=== PATIENT | male | born 1965 | race Caucasian/White ===

== ENCOUNTER 2016-08-25 11:13 | Emergency (ER) | payer BC, OTHER ==
[~2016-08-25] VITALS: Ht 180.3 cm; Wt 85.0 kg
[~2016-08-25 11:13] MED LIST: BUDE100T PO; BUPR100T4 PO; DEPA500T3 PO; DIAZ5TAB PO; HYDR50TA5 PO; NAPR500T PO; PRAV10 PO
[2016-08-25 11:16] VITALS: BP 172/92; PULSE 65; RESP 16; TEMP 98.2; O2SAT 98
--- NOTE | 2016-08-25 12:34 | PD ---
HPI Chief Complaint: Lump, Cyst, Hernia Time Seen by Provider: 12:27 Travel History International Travel<30 days: No Contact w/Intl Traveler<30days: No Traveled to known affect area: No History of Present Illness HPI 51-year-old male with PMH of anxiety, depression, PTSD, HTN presents to the ED for evaluation of 2 week history of right groin discomfort. Worsened by exertion, heavy lifting, rising from a sitting position. Patient denies fevers , chills, loss of appetite, abdominal pain, nausea, vomiting, changes in bowel habits, dysuria, hematuria, testicular pain. He states that he "stretched his inguinal ring "years ago while he was in the . He feels he may have aggravated this a few weeks ago whenever he was lifting 20-30 pound bags. PFSH Past Medical History Arthritis: Yes Anxiety: Yes Depression: Yes Cancer: No High Cholesterol: Yes Diabetes: No Diminished Hearing: No Genitourinary: Yes (kidney stones) Hypertension: Yes Kidney Stones: Yes (right kidney) Musculoskeletal: Yes Psychiatric: Yes (PTSD, per pt) Reproductive: No Past Surgical History Other Surgery: Yes (broken nose) Social History Alcohol Use: No Tobacco Use: No Substance Use: No (patient denies, not in two years) Allergies-Medications (Allergen,Severity, Reaction): Coded Allergies: No Known Allergies (Unverified , 08/25/16) Reported Meds & Prescriptions Reported Meds & Active Scripts Active Depakote ER (Divalproex Sodium) 500 Mg Aristeo 1,500 Mg PO DAILY 5 Days Reported Bupropion HCl 100 Mg Tab 200 Mg PO BID Simvastatin 40 Mg Tab 40 Mg PO HS Diazepam 5 Mg Tab 7.5 Mg PO QID PRN Review of Systems Except as stated in HPI: all other systems reviewed are Neg Physical Exam Narrative GENERAL: Well-nourished, well-developed white male in no acute distress. SKIN: Warm and dry. HEAD: Normocephalic. EYES: No scleral icterus. No injection or drainage. NECK: Supple, trachea midline. No JVD or lymphadenopathy. CARDIOVASCULAR: Regular rate and rhythm without murmurs, gallops, or rubs. RESPIRATORY: Breath sounds equal bilaterally. No accessory muscle use. GASTROINTESTINAL: Abdomen soft, non-tender, nondistended. No masses or bulges. Active bowel sounds. GENITOURINARY: Circumcised. Testes descended bilaterally without evidence of rotation. No lesions or erythema. No urethral discharge. No evidence of hernia. MUSCULOSKELETAL: No cyanosis, or edema. Patient is ambulatory and moves extremities spontaneously. BACK: Nontender without obvious deformity. No CVA tenderness. Data Data Last Documented VS Vital Signs Date Time Temp Pulse Resp B/P Pulse Ox O2 Delivery O2 Flow Rate FiO2 08/25/16 15:21 59 20 152/74 99 08/25/16 11:[address] Abd/Pel W/O Iv Contrast (08/25/16 12:54) MDM Medical Decision Making Medical Screen Exam Complete: Yes Emergency Medical Condition: Yes Differential Diagnosis Direct inguinal hernia versus indirect inguinal hernia versus groin strain versus other Narrative Course 51-year-old male with PMH of anxiety, depression, PTSD, HTN presents to the ED for evaluation of 2 week history of right groin discomfort. Worsened by exertion, heavy lifting, rising from a sitting position. Patient denies fevers , chills, loss of appetite, abdominal pain, nausea, vomiting, changes in bowel habits, dysuria, hematuria, testicular pain. He states that he "stretched his inguinal ring "years ago while he was in the . Vitals reviewed. Physical exam is reassuring. No abdominal or inguinal bulge. No hernia detected in the inguinal ring. CT of the abdomen/pelvis reveals no evidence of mass, lymphadenopathy, inflammatory changes in the inguinal areas per radiology read. Discussed the possibility of muscle strain/sprain. Advised the patient to limit strenuous activity, where he hernia belt or back support brace. Instructed him to treat symptomatically, take a brief course of NSAIDs, [facility] We discussed reasons to return to the emergency room. He indicated understanding of instructions, is amenable to plan of care. He is stable discharged home. Diagnosis Primary Impression: Right groin pain Referrals: Primary Care Physician Patient Instructions: General Instructions, Inguinal Hernia (ED) Additional Instructions: Rest, hydrate. Return to normal, gentle activities as tolerated. No heavy lifting, heavy physical exertion which causes pain. Consider trailing a hernia belt for symptomatic relief. [id number] pain medication such as ibuprofen as needed, as directed on label. [facility]. Return to the ED for any urgent or emergent medical condition. Disposition: 01 DISCHARGE HOME Condition: Stable Taylor Polo Aug 25, 2016 12:34
[2016-08-25] MEDS ORDERED: BUPR100T4 PO (12:47)
[2016-08-25] MEDS ORDERED: SIMV40TA PO (12:47)
[2016-08-25 13:15] VITALS: BP 165/68; PULSE 68; RESP 16; O2SAT 98
--- NOTE | 2016-08-25 14:48 | RADRPT ---
EXAM DATE/TIME: 08/25/2016 13:40 [facility] COMPARISON: CT ABDOMEN & PELVIS W/O CONTRAST, April 30, 2016, 2:44. INDICATIONS : Right groin pain for 2 weeks. ORAL CONTRAST: No oral contrast ingested. RADIATION DOSE: 9.96 CTDIvol (mGy) MEDICAL HISTORY : Hypertension. Renal calculi. SURGICAL HISTORY : None. ENCOUNTER: Initial ACUITY: 2 weeks PAIN SCALE: 4/10 LOCATION: Right pelvis TECHNIQUE: Volumetric scanning of the abdomen and pelvis was performed. Using automated exposure control and ad justment of the mA and/or kV according to patient size, radiation dose was kept as low as reasonably achievable to obtain optimal diagnostic quality images. FINDINGS: LOWER LUNGS: The visualized lower lungs are clear. LIVER: Homogeneous density without lesion. There is no dilation of the biliary tree. No calcified gallston es. SPLEEN: Normal size without lesion. PANCREAS: Within normal limits. KIDNEYS: Normal in size and shape. Simple bilateral renal cysts have remained stable. There is no mass, stone, or hydronephrosis. ADRENAL GLANDS: Within normal limits. VASCULAR: There is no aortic aneurysm. BOWEL/MESENTERY: The stomach, small bowel, and colon demonstrate no acute abnormality. There is no free intraperitone al air or fluid. ABDOMINAL WALL: Within normal limits. RETROPERITONEUM: There is no lymphadenopathy. BLADDER: No wall thickening or mass. REPRODUCTIVE: Within normal limits. INGUINAL: There is no lymphadenopathy or hernia. MUSCULOSKELETAL: Within normal limits for patient age. CONCLUSION: No acute disease. No evidence of mass, lymphadenopathy or inflammatory changes in the inguinal regions. Stable simple bilateral renal cysts. Gab Stewart MD on August 25, 2016 at 14:43 Board Certified Radiologist. This report was verified electronically.
[2016-08-25 15:21] VITALS: BP 152/74
== END 2016-08-25 15:21 | disposition home or self-care (01) ==
LOC: NETRI 11:13
DX: R10.30 Lower abdominal pain, unspecified (principal); F41.8 Other specified anxiety disorders; E78.00 Pure hypercholesterolemia, unspecified; Z87.442 Personal history of urinary calculi; I10 Essential (primary) hypertension; F43.10 Post-traumatic stress disorder, unspecified
CPT/HCPCS: 74176

== ENCOUNTER 2016-09-13 15:54 | Inpatient (IN) | payer OTHER ==
[~2016-09-13] VITALS: Ht 172.7 cm; Wt 86.0 kg
[~2016-09-13 15:54] MED LIST changes: -BUDE100T PO; -HYDR50TA5 PO; -NAPR500T PO; -PRAV10 PO; +SIMV40TA PO
[2016-09-13 16:25] VITALS: BP 125/78; PULSE 74; RESP 20; TEMP 97; O2SAT 96
[2016-09-13 16:41] VITALS: BP 131/79; PULSE 71; RESP 18; TEMP 98; O2SAT 97
[2016-09-13] MEDS ORDERED: DEPA500T3 PO (17:12)
[2016-09-13] MEDS ORDERED: HYDR25TA5 PO (17:12)
[2016-09-13 18:17] LABS: AUTOMATED NEUTROPHIL # 1.7 TH/MM3 (1.8-7.7); BASOPHIL % 0.5 % (0.0-2.0); EOSINOPHIL # 0.2 TH/MM3 (0-0.4); EOSINOPHIL % 5.7 % (0.0-4.0); HEMATOCRIT 41.2 % (39.0-51.0); HEMO FLAGS DIFF FINAL; LYMPH % 39.4 % (9.0-44.0); LYMPHOCYTE # 1.5 TH/MM3 (1.0-4.8); MEAN CELL VOLUME 86.1 FL (80.0-100.0); MEAN CORPUSCULAR HEMOGLOBIN 29.6 PG (27.0-34.0); MEAN CORPUSCULAR HGB CONC 34.4 % (32.0-36.0); MONO % 10.2 % (0.0-8.0); NEUT % 44.2 % (16.0-70.0); PLATELET COUNT 217 TH/MM3 (150-450); RED BLOOD COUNT 4.78 MIL/MM3 (4.50-5.90); RED CELL DISTRIBUTION WIDTH 13.8 % (11.6-17.2); WHITE BLOOD COUNT 3.9 TH/MM3 (4.0-11.0)
--- NOTE | 2016-09-13 18:42 | PD ---
HPI Chief Complaint: Psychiatric Symptoms Time Seen by Provider: 18:40 Travel History International Travel<30 days: No Contact w/Intl Traveler<30days: No Traveled to known affect area: No History of Present Illness HPI Patient comes under a Jackson act for homicidal and suicidal ideations. Patient denies any suicidal ideation but states that sometimes he is feeling homicidal similar to when he was back in [place] when he gets this way he needs to get help. Patient denies any exact plans. Denies any medical concerns at this time. Denies any chest pain, short of breath, nausea and vomiting, abdominal pain, fevers, or headaches. PFSH Past Medical History Arthritis: Yes Anxiety: Yes Depression: Yes Cancer: No High Cholesterol: Yes Diabetes: No Diminished Hearing: No Gastrointestinal Disorders: Yes (upper intestinal pain, intermittent and severe ) Genitourinary: Yes (kidney stones) Headaches: Yes Hypertension: Yes Kidney Stones: Yes (right kidney) Musculoskeletal: Yes (CHRONIC PAIN) Psychiatric: Yes (PTSD, per pt) Reproductive: No Past Surgical History Other Surgery: Yes (broken nose) Social History Alcohol Use: No Tobacco Use: No Substance Use: Yes (COCAINE, MARIJUANA) Allergies-Medications (Allergen,Severity, Reaction): Coded Allergies: No Known Allergies (Unverified , 08/25/16) Reported Meds & Prescriptions Reported Meds & Active Scripts Active Reported Depakote ER (Divalproex Sodium) 500 Mg Aristeo 2,000 Mg PO HS Hydrochlorothiazide 25 Mg Tab 25 Mg PO DAILY Bupropion HCl 100 Mg Tab 200 Mg PO BID Simvastatin 40 Mg Tab 40 Mg PO HS Diazepam 5 Mg Tab 5 Mg PO BID PRN Review of Systems Except as stated in HPI: all other systems reviewed are Neg Physical Exam Narrative GENERAL: Well-developed, well nourished, in no acute distress, and non-ill appearing. SKIN: Warm and dry. HEAD: Atraumatic. Normocephalic. EYES: Pupils equal and round. EOMI. No scleral icterus. No injection or drainage. ENT: No nasal bleeding or discharge. Mucous membranes pink and moist. NECK: Trachea midline. Supple. No nuclear rigidity. CARDIOVASCULAR: Regular rate and rhythm. No murmur appreciated. RESPIRATORY: No accessory muscle use. No respiratory distress. Clear to auscultation. Breath sounds equal bilaterally. MUSCULOSKELETAL: No obvious deformities. No clubbing. No cyanosis. No edema. Full range of motion. NEUROLOGICAL: Awake and alert. No obvious cranial nerve deficits. Motor grossly within normal limits. Normal speech. PSYCHIATRIC: Appropriate mood and affect. Data Data Last Documented VS Vital Signs Date Time Temp Pulse Resp B/P Pulse Ox O2 Delivery O2 Flow Rate FiO2 09/13/16 16:41 98.0 71 18 131/79 97 Room Air Orders Complete Blood Count With Diff (09/13/16 16:16) Comprehensive Metabolic Panel (09/13/16 16:16) Psych Screen (09/13/16 16:16) Diet Regular Basic (09/13/16 Dinner) Valproic Acid (Depakene) (09/13/16 18:14) Alcohol (Ethanol) (09/13/16 18:14) Drug Screen, Random Urine (09/13/16 18:14) Labs Laboratory Tests Test 09/13/16 09/13/16 17:00 18:03 Urine Opiates Screen NEG Urine Barbiturates Screen NEG Urine Amphetamines Screen NEG Urine Benzodiazepines Screen POS Urine Cocaine Screen POS Urine Cannabinoids Screen POS White Blood Count 3.9 TH/MM3 Red Blood Count 4.78 MIL/MM3 Hemoglobin 14.2 GM/DL Hematocrit 41.2 % Mean Corpuscular Volume 86.1 FL Mean Corpuscular Hemoglobin 29.6 PG Mean Corpuscular Hemoglobin 34.4 % Concent Red Cell Distribution Width 13.8 % Platelet Count 217 TH/MM3 Mean Platelet Volume 8.3 FL Neutrophils (%) (Auto) 44.2 % Lymphocytes (%) (Auto) 39.4 % Monocytes (%) (Auto) 10.2 % Eosinophils (%) (Auto) 5.7 % Basophils (%) (Auto) 0.5 % Neutrophils # (Auto) 1.7 TH/MM3 Lymphocytes # (Auto) 1.5 TH/MM3 Monocytes # (Auto) 0.4 TH/MM3 Eosinophils # (Auto) 0.2 TH/MM3 Basophils # (Auto) 0.0 TH/MM3 CBC Comment DIFF FINAL Differential Comment Sodium Level 141 MEQ/L Potassium Level 4.3 MEQ/L Chloride Level 104 MEQ/L Carbon Dioxide Level 30.9 MEQ/L Anion Gap 6 MEQ/L Blood Urea Nitrogen 12 MG/DL Creatinine 1.46 MG/DL Estimat Glomerular Filtration 51 ML/MIN Rate Random Glucose 115 MG/DL Calcium Level 8.8 MG/DL Total Bilirubin 0.2 MG/DL Aspartate Amino Transf 15 U/L (AST/SGOT) Alanine Aminotransferase 17 U/L (ALT/SGPT) Alkaline Phosphatase 77 U/L Total Protein 7.3 GM/DL Albumin 3.8 GM/DL Valproic Acid (Depakene) Level 65 MCG/ML Ethyl Alcohol Level LESS THAN 3 MG/DL MDM Medical Decision Making Medical Screen Exam Complete: Yes Emergency Medical Condition: Yes Differential Diagnosis Homicidal, suicidal, polysubstance abuse, bipolar, psychosis, suicidal, other Narrative Course Patient was seen and examined. Labs were obtained and reviewed. Patient medically cleared for further treatment and evaluation by psych. Final disposition per psych. Diagnosis Primary Impression: Homicidal ideations Additional Impression: Polysubstance abuse Condition: Stable Monico Solis Sep 13, 2016 18:42
[2016-09-13 18:45] LABS: ALT (GPT) 17 U/L (12-78); ANION GAP 6 MEQ/L (5-15); AST (GOT) 15 U/L (15-37); BICARBONATE 30.9 MEQ/L (21.0-32.0); BLOOD UREA NITROGEN 12 MG/DL (7-18); CHLORIDE 104 MEQ/L (98-107); GLOMERULAR FILTRATION RATE 51 ML/MIN (>89); POTASSIUM 4.3 MEQ/L (3.5-5.1); SODIUM (NA) 141 MEQ/L (136-145)
[2016-09-13 18:47] LABS: ALKALINE PHOSPHATASE 77 U/L (45-117); TOTAL BILIRUBIN ADULT 0.2 MG/DL (0.2-1.0)
[2016-09-13 19:20] LABS: AMPHETAMINE, URINE NEG (NEG); BARBITURATES, URINE NEG (NEG); COCAINE, URINE POS (NEG)
[2016-09-13 22:21] VITALS: BP 127/79; PULSE 72; RESP 18; O2SAT 97
[2016-09-14 02:00] VITALS: BP 122/76; PULSE 65; RESP 17; O2SAT 98
[2016-09-14 06:17] VITALS: BP 129/72; PULSE 56; RESP 18; O2SAT 98
[2016-09-14 10:37] VITALS: BP 132/75; PULSE 81; RESP 18; O2SAT 97
--- NOTE | 2016-09-14 11:37 | PD ---
History of Present Illness Chief Complaint: Psychiatric Symptoms Time Seen by Provider: 11:10 Travel History International Travel<30 Days: No Contact w/Intl Traveler<30days: No Known affected area: No Legal Status Legal Status: Jackson Act Jackson Act Signed By: HIRO NELSON MD FROM [place] History of Present Illness: History of Present Illness HPI Patient is a 51 year old male with hx of PTSD who presents under a BA initiated by psychiatrist at the [facility]. As per the report " having passive suicidal ideation and homicidal wishes towards his . Patient presented to [facility] with above complaints. He was monitored in secure environment in [place] with no behavioral concerns or suicidality. Patient is alert, oriented, engaging. Speech is clear and logical. No indication of any thought process or contents disturbance. Mood is dysphoric. He states " If I were to be discharged I would probably put 2 in her head ( his ). ". I don't have a gun but it's very easy to buy one on the street. I would then try to get the police to shoot me. I know it doesn't make sense but that's how I feel". He reports ongoing marital distress as significant stressor and that they fight over money as well as over his dogs which he claims she put in the dog pound. . He also stopped taking his prescribed medications a few days ago . VPA level is 65. Reports poor sleep, low level of energy is reported. Hopelessness regarding his future. In terns of substance use he is positive for cannabinoids, cocaine as well as benzos. One previous psychiatric hospitalization in Jul 2016 at [facility] under the care of Dr. Laurent. [facility] Past Medical History Arthritis: Yes Anxiety: Yes Depression: Yes Cancer: No High Cholesterol: Yes Diabetes: No Diminished Hearing: No Gastrointestinal Disorders: Yes (upper intestinal pain, intermittent and severe ) Genitourinary: Yes (kidney stones) Headaches: Yes Hypertension: Yes Kidney Stones: Yes (right kidney) Musculoskeletal: Yes (CHRONIC PAIN) Psychiatric: Yes (PTSD, per pt) Reproductive: No Past Surgical History Other Surgery: Yes (broken nose) Psychiatric History Psychiatric History Hx Psychiatric Treatment: PTSD Receives care at the [place] History of Inpatient Treatment: Yes ([facility] Jul 2016.) Guns or firearms in home: No Social History Born in [place]. 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 Disabled. x 3 years. Lives with his . Hx Alcohol Use: No Hx Tobacco Use: No Hx Substance Use: Yes (COCAINE, MARIJUANA) Substance Use Type: Marijuana, Cocaine Other Substances Used: TAKING PRESCRIBED VALIUM. DOSE DECREASED AND REPORTS DECREASED EFFECT Hx of Substance Use Treatment: Yes Family Psychiatric History cousin completed suicide Allergies-Medications (Allergen,Severity, Reaction): Coded Allergies: No Known Allergies (Unverified , 08/25/16) Reported Meds & Prescriptions Reported Meds & Active Scripts Active Reported Depakote ER (Divalproex Sodium) 500 Mg Aristeo 2,000 Mg PO HS Hydrochlorothiazide 25 Mg Tab 25 Mg PO DAILY Bupropion HCl 100 Mg Tab 200 Mg PO BID Simvastatin 40 Mg Tab 40 Mg PO HS Diazepam 5 Mg Tab 5 Mg PO BID PRN Review of Systems Except as stated in HPI: all other systems reviewed are Neg Psychiatric: COMPLAINS OF: Mood changes, Suicidal Ideation, Homicidal Ideation Exam Alert: Yes [place]: Person (ox4) Mood: Angry Affect: Other (congruent) Eye Contact: Indirect Memory Intact: Comment (no impairment) Hallucinations: Other (negative) Delusions: No Suicidal: Ideation (pasive) Homicidal: Plan (to shoot his ), Ideation Insight/Judgement poor. poor MDM Medical Decision Making Medical Record Reviewed: Yes Assessment/Plan 51 year old male under A BA after he presented to [facility] and verbalized suicidal as well as homicidal ideation. He reports marital discord, poor medication compliance as well as continued use of substances which all may be contributing to current state. he continues to endorse homicidal ideation and states " I may end up putting 2 in her head if discharged". Orders Complete Blood Count With Diff (09/13/16 16:16) Comprehensive Metabolic Panel (09/13/16 16:16) Psych Screen (09/13/16 16:16) Diet Regular Basic (09/13/16 Dinner) Valproic Acid (Depakene) (09/13/16 18:14) Alcohol (Ethanol) (09/13/16 18:14) Drug Screen, Random Urine (09/13/16 18:14) Diet Regular Basic (2/9/17 Breakfast) Diet Regular Basic (09/14/16 Lunch) Results Vital Signs Date Time Temp Pulse Resp B/P Pulse Ox O2 Delivery O2 Flow Rate FiO2 09/14/16 10:37 81 18 132/75 97 09/14/16 06:17 56 18 129/72 98 Room Air 09/14/16 02:00 65 17 122/76 98 Room Air 09/13/16 22:21 72 18 127/79 97 Room Air 09/13/16 16:41 98.0 71 18 131/79 97 Room Air 09/13/16 16:25 97.0 74 20 125/78 96 Laboratory Tests Test 09/13/16 09/13/16 17:00 18:03 Urine Opiates Screen NEG Urine Barbiturates Screen NEG Urine Amphetamines Screen NEG Urine Benzodiazepines Screen POS Urine Cocaine Screen POS Urine Cannabinoids Screen POS White Blood Count 3.9 Red Blood Count 4.78 Hemoglobin 14.2 Hematocrit 41.2 Mean Corpuscular Volume 86.1 Mean Corpuscular Hemoglobin 29.6 Mean Corpuscular Hemoglobin 34.4 Concent Red Cell Distribution Width 13.8 Platelet Count 217 Mean Platelet Volume 8.3 Neutrophils (%) (Auto) 44.2 Lymphocytes (%) (Auto) 39.4 Monocytes (%) (Auto) 10.2 Eosinophils (%) (Auto) 5.7 Basophils (%) (Auto) 0.5 Neutrophils # (Auto) 1.7 Lymphocytes # (Auto) 1.5 Monocytes # (Auto) 0.4 Eosinophils # (Auto) 0.2 Basophils # (Auto) 0.0 CBC Comment DIFF FINAL Differential Comment Sodium Level 141 Potassium Level 4.3 Chloride Level 104 Carbon Dioxide Level 30.9 Anion Gap 6 Blood Urea Nitrogen 12 Creatinine 1.46 Estimat Glomerular Filtration 51 Rate Random Glucose 115 Calcium Level 8.8 Total Bilirubin 0.2 Aspartate Amino Transf 15 (AST/SGOT) Alanine Aminotransferase 17 (ALT/SGPT) Alkaline Phosphatase 77 Total Protein 7.3 Albumin 3.8 Valproic Acid (Depakene) Level 65 Ethyl Alcohol Level LESS THAN 3 Diagnosis Primary Impression: Bipolar disorder, in partial remission, most recent episode mixed Additional Impression: Polysubstance abuse Admitting Information Admitting Physician Requests: Admit (Dr. Starr) Condition: Stable Problem Qualifiers Tiarra Miller [facility] Sep 14, 2016 11:37
[2016-09-14] MEDS ORDERED: MAGNESIUM HYDROXIDE SUSP 30 ML CUP PO PRN (12:15)
[2016-09-14] MEDS ORDERED: ALUMINUM/MAGNESIUM/SIMETH 30 ML CUP PO PRN (12:15)
[2016-09-14 14:02] VITALS: BP 138/108; PULSE 75; RESP 18; TEMP 98.3; O2SAT 93
--- NOTE | 2016-09-14 15:31 | HHI.HP ---
Provisional Diagnosis Admission Date Sep 14, 2016 at 12:13 Healy I. 1. Drug-induced mood disorder Rule out bipolar disorder, depressed 2. Cocaine abuse 3. Cannabis abuse 4. Posttraumatic stress disorder, chronic Rule out comorbid anxiety disorder Healy II. 1. Antisocial personality traits Healy V. GAF is 30 presently Certification of Person's Competence To Provide Express and Informed Consent I have personally examined He Porter , a person being served at [facility] on, Sep 14, 2016 15:30. Express and informed consent means consent voluntarily given in writing, by a competent person, after sufficient explanation and disclosure of the subject matter involved to enable the person to make a knowing and willful decision without any element of force, fraud, deceit, duress, or other form of constraint or coercion. This person is 18 years of age or older, is not now known to be incompetent to consent to treatment with a guardian advocate, and does not have a health care surrogate or proxy currently making medical treatment decisions. I have found this person to be one of the following: [x] Competent to provide express and informed consent, as defined above, for voluntary admission to this facility and is competent to provide express and informed consent for treatment. He/she has the consistent capacity to make well reasoned, willful, and knowing decisions concerning his or her medical or mental health treatment. The person fully and consistently understands the purpose of the admission for examination/placement and is fully capable of personally exercising all rights assured under [place] Incompetent to provide express and informed consent to voluntary admission, and this is incompetent to provide express and informed consent to treatment. The person must be transferred to involuntary status and a petition for a guardian advocate filed with the Circuit Court. [] Refusing to provide express and informed consent to voluntary admission but is competent to provide express and informed consent for treatment. The person must be discharged or transferred to involuntary status. Form shall be completed within 24 hours of a person's arrival at the receiving facility and filed in the clinical record of each person: 1. Admitted on a voluntary basis 2. Permitted to provide express and informed consent to his/her own treatment 3. Allowed to transfer from involuntary to voluntary status 4. Prior to permitting a person to consent to his or her own treatment after having been previously found incompetent to consent to treatment. History of Present Illness Capacity: Has Capacity HPI Mr. Porter is a 51-year-old male with a reported history of post traumatic stress disorder from trauma, bipolar disorder and anxiety who presents in transfer from the [facility] under a Jackson act from a Dr. Marcial there alleging passive suicidal ideation and homicidal ideation directed against . Also appended to the chart is a progress note from Dr. Marcial as well as a medication list, and I have reviewed this. Patient was evaluated in the emergency department by the psychiatric nurse practitioner who determined the patient met criteria for psychiatric hospitalization. Reviewing the electronic medical record, I note patient's most recent psychiatric hospitalization here was under Dr. Laurent in July of last year. Patient seen and examined with counselor. Chart reviewed. Case discussed with nursing staff. On my examination today, the patient says that he probably should've stayed a few more days when he was hospitalized last time. He reports that his presentation now is largely the result of the same stressors that led him to come into the hospital last time. He says that his is quite manipulative and treats him poorly for 3 weeks out of every month. She is only nice to him the week before he gets his disability check. He says that on this occasion his he used his being late coming home by 1 hour as a pretense to throw all of his items on the curb. He says that he would like to kill his as a result. He does not articulate a specific plan at this time but had said he might buy a gun and shoot her to the nurse practitioner in the ED. He feels "wanting to hurt her makes perfect sense" but also recognizes that these feelings are abnormal. He describes a high level of generalized anxiety and is medication seeking for benzodiazepines. His mood is dysphoric. He reports disrupted sleep with associated nightmares. Some avoidance and hyperarousal. He denies any SI at this time. Antisocial personality traits are evident. The remainder of the psychiatric ROS is negative. Past psychiatric history: Patient reports prior diagnoses as noted above. He is presently following with [facility] Marcial at the [facility]. He has done psychotherapy through the [facility] in the past but finds that the provider changed to frequently to allow for establishment of report. He says that his only previous psychiatric admission was here under Dr. Laurent. He denies any history of suicide attempts. Patient reports that he felt some interval improvement in his condition when his Depakote was titrated from 1500mg to 2000mg qHS. He reports he has never been on prazosin for nightmares. Review of Systems Other No reported headache, vision or hearing changes, chest pain, shortness of breath , bowel or bladder issues. No other physical complaints. Past Psych History Psychological trauma history Patient reports a history of trauma. He denies any history of childhood or other abuse. Substance Abuse History Drugs/Alcohol past 12 months Patient reports chronic use of cannabis but says that his cocaine use is solely to antagonize his . He says "I'm just trying to push her away." He admits to overusing his benzodiazepines, taking 3 or 4 Valium a day instead of the 2 a day that he is prescribed. I did review his E-FORCSE report and note he received a refill of Valium 5mg, #60 for 30 days on 08/31/16. Past Family Social History Coded Allergies: No Known Allergies (Unverified , 08/25/16) Past Medical History Patient endorses a history of hypertension and hyperlipidemia Reported Medications Hydrochlorothiazide 25 Mg Tab25 Mg PO DAILY #30 TAB Ref 0 09/13/16 Bupropion HCl 100 Mg [id number] Mg PO BID Ref 0 08/25/16 Simvastatin 40 Mg Tab40 Mg PO HS #30 TAB Ref 0 08/25/16 Diazepam 5 Mg Tab5 Mg PO BID PRN (ANXIETY) Ref 0 07/12/16 Discontinued Reported Medications Divalproex ER (Depakote ER)500 Mg Taber2,000 Mg PO HS #60 TAB Ref 0 09/13/16 Discontinued Scripts Divalproex ER (Depakote ER)500 Mg Taber1,500 Mg PO DAILY 5 Days Ref 1 Prov:Keyur Huizar MD 07/19/16 Current Medications Medications (Trade) Dose Ordered Sig/Yulissa Route Start Time Stop Time Status Last Admin (Tylenol) 650 mg Q4H PRN PO 09/14/16 12:15 (Milk Of Magnesia Liq) 30 ml DAILY PRN PO 09/14/16 12:15 (Mag-Al Plus Susp Liq) 30 ml Q6H PRN PO 09/14/16 12:15 Family History Patient denies any family history of serious mental illness but says that his cousin had an opiate use problem and overdosed. No reported family history of intentional self injury or suicide. Social History Patient reports that he is a [employer] having served in [place] and having been honorably discharged. He is 90% service connected. He has been to his second now for "3 miserable years." He has no children. He denies any legal issues. He denies any access to guns or firearms. He is a Bahai and says "that's the only reason she [his ] is still breathing." Patient's Strengths (min. 2) Maintaining basic hygiene. Verbally fluent. Physical Exam A physical examination was completed in the emergency room by the ER staff and the patient was medically cleared. On my examination today, the patient is in no acute physical distress. No motoric abnormalities noted. Steady gait and station. Labs and vital signs reviewed. Vital Signs Vital Signs Date Time Temp Pulse Resp B/P Pulse Ox O2 Delivery O2 Flow Rate FiO2 09/14/16 14:02 98.3 75 18 138/108 93 09/14/16 06:17 Room Air Lab Results Item Value Date Time White Blood Count 3.9 TH/MM3 L 09/13/16 1803 Hemoglobin 14.2 GM/DL 09/13/16 180 Platelet Count 217 TH/MM3 09/13/16 1803 Sodium Level 141 MEQ/L 09/13/16 1803 Potassium Level 4.3 MEQ/L 09/13/16 1803 Chloride Level 104 MEQ/L 09/13/16 1803 Carbon Dioxide Level 30.9 MEQ/L 09/13/16 1803 Blood Urea Nitrogen 12 MG/DL 09/13/16 1803 Creatinine 1.46 MG/DL H 09/13/16 1803 Estimat Glomerular Filtration Rate 51 ML/MIN L 09/13/16 1803 Aspartate Amino Transf (AST/SGOT) 15 U/L 09/13/16 1803 Alanine Aminotransferase (ALT/SGPT) 17 U/L 09/13/16 1803 Alkaline Phosphatase 77 U/L 09/13/16 1803 Urine Benzodiazepines Screen POS H 09/13/16 1700 Urine Cocaine Screen POS H 09/13/16 1700 Urine Cannabinoids Screen POS H 09/13/16 1700 Valproic Acid (Depakene) Level 65 MCG/ML 09/13/16 1803 Ethyl Alcohol Level LESS THAN 3 MG/DL 09/13/16 1803 Renal function is comparable to best renal function obtained during his July admission. Mental Status Examination Patient is in hospital gown. He is fairly well groomed. He is awake and alert and oriented 3. No evidence of delirium. No motoric abnormalities noted. Speech is within normal limits for rate, tone and volume. Language and fund of knowledge and average for age. Mood is dysphoric and affect is restricted. Thought process linear. No loosening of associations. No evident delusions. Denies audiovisual hallucinations. Denies suicidal ideation. Continues to endorse thoughts of killing his . Insight and judgment are [id number]; from Dr. Marcial's notes, patient did request to be sent to hospital. Previous Suicide Attempts: No Previous Homicide Attempts: No Assessment & Plan Problem List: (1) Drug-induced mood disorder ICD Code: F19.94 (2) Cocaine abuse ICD Code: F14.10 (3) Cannabis abuse ICD Code: F12.10 (4) Chronic post-traumatic stress disorder (PTSD) ICD Code: F43.12 Assessment & Plan This is a 51-year-old male with psychiatric history as detailed above who presents from the [facility] under a Jackson act. Patient continues to articulate an urge to kill his because he feels she mistreats him. His rationale for this proposed conduct seems rational, in its way, and there is no evidence that his desire to injure his has its basis in a mood , anxiety or psychotic disorder. For example, he has no CAH to kill his , nor does he labor under a delusion that might lead him to do so. His antisocial personality traits and substance use are certainly risk factors for violence, but these will not be ameliorated on the inpatient unit. He is somewhat dysphoric, and while I suspect this is largely substance induced, he did notice some benefit when his Depakote was titrated last time, and there is room for titration now. More also might be done to address his symptoms of post traumatic stress. I will plan to admit the patient to the inpatient psychiatric unit for safety, observation, and stabilization. --Admit inpatient --Voluntary status --Titrate Depakote ER to 2500mg qHS for mood stabilization. LFTs and plt ok. Plan to check a level after the weekend. --Add prazosin 1mg BID for PTSD. --Continue Valium 5mg BID PRN anxiety as prescribed outpatient. --Continue Wellbutrin SR 200mg BID, although I did suggest he might consider a more serotonergic antidepressant for better management of his anxious symptoms. He says he has tried Prozac in the past without a mood stabilizer on board and has had induction of a manic-like state. --Continue hydrochlorothiazide and statin --Vitals every shift --Counselor to see --Disposition planning --Estimated length of stay: 7-9 days Discharge Planning Pending psychiatric stabilization Request HC Surrog/Guard Advoc?: No Yogesh Starr MD Sep 14, 2016 15:31
[2016-09-14] MEDS: DIAZEPAM 5 MG TAB PO PRN (17:06)
[2016-09-14 20:29] VITALS: BP 131/83; PULSE 73; RESP 17; TEMP 97.9; O2SAT 96
[2016-09-14] MEDS: PRAZOSIN HCL 1 MG CAP PO SCH (21:16)
[2016-09-14] MEDS: PRAVASTATIN SOD 80 MG TAB PO SCH (21:16)
[2016-09-14] MEDS: DIVALPROEX SODIUM E.R. 500 MG TAB PO SCH (21:18)
[2016-09-14] MEDS: buPROPion HCL 100 MG TAB PO SCH (21:22)
[2016-09-15 06:22] VITALS: BP 140/73; PULSE 89; RESP 18; TEMP 97.9; O2SAT 95
[2016-09-15] MEDS: PRAZOSIN HCL 1 MG CAP PO SCH (08:42)
[2016-09-15] MEDS: buPROPion HCL 100 MG TAB PO SCH ×2 (08:42→20:57)
[2016-09-15] MEDS: HYDROCHLOROTHIAZIDE 25 MG TAB PO SCH (08:42)
[2016-09-15] MEDS: DIAZEPAM 5 MG TAB PO PRN ×2 (08:57→19:28)
[2016-09-15 09:02] LABS: BLOOD UREA NITROGEN 13 MG/DL (7-18); CHLORIDE 102 MEQ/L (98-107); GLOMERULAR FILTRATION RATE 50 ML/MIN (>89); POTASSIUM 3.4 MEQ/L (3.5-5.1); SODIUM (NA) 141 MEQ/L (136-145)
[2016-09-15 09:03] LABS: ANION GAP 10 MEQ/L (5-15); BICARBONATE 28.8 MEQ/L (21.0-32.0); HDL CHOLESTEROL 42.2 MG/DL (40.0-60.0)
[2016-09-15 11:51] LABS: HEMOGLOBIN A1a 1.1 %; HEMOGLOBIN A1b 1.4 %; HEMOGLOBIN Ao 86.6 %; HEMOGLOBIN LA1C 1.9 %; HEMOGLOBIN P3 3.4 %
--- NOTE | 2016-09-15 12:12 | HHI.PYPN ---
Subjective Remarks Patient seen and examined with counselor. Chart reviewed. Case discussed with nursing staff reports he is adapting well to the inpatient psychiatric unit but still has an irritable edge. On my examination today, the patient continues to describe ruminative thoughts of violence although he is able not to pay attention to it. He continues to articulate homicidal ideation directed against his although he says this is decreasing. He reports that his sleep was improved significantly over night with the addition of prazosin. He is calmer and less irritable. He does complain of some dry mouth but otherwise denies side effects from medications. Review of Systems Other No somatic complaints today besides the dry mouth Objective Alert: Yes [place]: Person (O x 3) Mood: Other (Irritable, lessening) Affect: Blunted Memory Intact: Comment (Intact on clinical exam) Hallucinations: Other (Denies AVH) Delusions: No Delusion Type: Other (No delusions) Suicidal: Ideation (Denies SI) Homicidal: Ideation (Ruminative thoughts of violence and HI towards . No plan. No intent and seeking help to reduce this HI.) Insight/Judgement Fair Remarks Thought process linear. Speech within normal limits for rate, tone and volume. No ataxia or other motoric abnormalities noted. Labs Test 09/15/16 07:18 Sodium Level 141 MEQ/L Potassium Level 3.4 MEQ/L Chloride Level 102 MEQ/L Carbon Dioxide Level 28.8 MEQ/L Anion Gap 10 MEQ/L Blood Urea Nitrogen 13 MG/DL Creatinine 1.47 MG/DL Estimat Glomerular Filtration 50 ML/MIN Rate Random Glucose 92 MG/DL Calcium Level 8.8 MG/DL Triglycerides Level 518 MG/DL Cholesterol Level 165 MG/DL LDL Cholesterol MG/DL HDL Cholesterol 42.2 MG/DL Cholesterol/HDL Ratio 3.90 RATIO Labs reviewed. Triglyceride level is up versus previous assessment. Potassium level somewhat low. Vitals/IOs Vital Signs Date Time Temp Pulse Resp B/P Pulse Ox O2 Delivery O2 Flow Rate FiO2 09/15/16 06:22 97.9 89 18 140/73 95 09/14/16 06:17 Room Air Assessment & Plan Problem List: (1) Other psychoactive substance abuse with psychoactive substance-induced mood disorder ICD Code: F19.14 (2) Cocaine abuse ICD Code: F14.10 (3) Cannabis abuse ICD Code: F12.10 (4) Chronic post-traumatic stress disorder (PTSD) ICD Code: F43.12 Assessment & Plan Patient less irritable following titration of Depakote and initiation of prazosin. I will titrate prazosin. Plan to check a Depakote and ammonia level after the weekend. I will repeat his potassium and recheck a K and Mg tomorrow. Consult to the hospitalist for hypertriglyceridemia. Biotene mouthwash for dry mouth. Continue other medications and care as ordered. Justification for Cont. Inpt. Impairments in safety. Medication changes in process. Discharge Planning Pending psychiatric stabilization Request HC Surrog/Guard Advoc?: No Yogesh Starr MD Sep 15, 2016 12:12
[2016-09-15] MEDS ORDERED: POTASSIUM CHLORIDE 10 MEQ CONTROLLED RELEASE TAB PO ONE (15:00)
[2016-09-15 20:03] VITALS: BP 141/76; PULSE 58; RESP 18; TEMP 97.3; O2SAT 97
[2016-09-15] MEDS: DIVALPROEX SODIUM E.R. 500 MG TAB PO SCH (20:56)
[2016-09-15] MEDS: PRAVASTATIN SOD 80 MG TAB PO SCH (20:57)
[2016-09-15] MEDS: PRAZOSIN HCL 2 MG CAP PO SCH (22:05)
[2016-09-16 06:20] VITALS: BP 140/81; PULSE 96; RESP 18; TEMP 97.7; O2SAT 96
[2016-09-16] MEDS: PRAZOSIN HCL 2 MG CAP PO SCH ×2 (08:30→21:36)
[2016-09-16] MEDS: buPROPion HCL 100 MG TAB PO SCH ×2 (08:30→21:35)
[2016-09-16] MEDS: HYDROCHLOROTHIAZIDE 25 MG TAB PO SCH (08:30)
[2016-09-16] MEDS: DIAZEPAM 5 MG TAB PO PRN ×2 (08:34→21:37)
[2016-09-16] MEDS ORDERED: OLANZapine 10 MG TAB PO ONE (12:30)
--- NOTE | 2016-09-16 16:04 | PD.CONS ---
HPI Service [facility] Consult Requested By Psychiatric services Reason for Consult Hypertriglyceridemia Primary Care Physician [facility] Diagnoses: History of Present Illness Patient is 51-year-old male with primary medical history of high cholesterol, hypertension. He is now admitted in inpatient psychiatric unit. Consulted for hypertriglyceridemia. Patient does report he has not been taking his cholesterol medication at home and has not been eating a healthy diet or exercising. Patient seen today appears visually agitated but is cooperative with exam. Denies pain and discomfort. Denies SOB/ dyspnea. Denies chest pain, headaches , dizziness. Denies fevers, chills, n/v/d. Review of Systems Except as stated in HPI: all other systems reviewed are Neg Past Family Social History Allergies: Coded Allergies: No Known Allergies (Unverified , 08/25/16) Past Medical History HTN High cholesterol Past Surgical History Rhinoplasty - repair broken nose Reported Medications Hydrochlorothiazide 25 Mg Tab 25 Mg PO DAILY Bupropion HCl 100 Mg Tab 200 Mg PO BID Simvastatin 40 Mg Tab 40 Mg PO HS Diazepam 5 Mg Tab 5 Mg PO BID PRN Active Ordered Medications Current Medications Medications (Trade) Dose Ordered Sig/Yulissa Route Start Time Stop Time Status Last Admin (Tylenol) 650 mg Q4H PRN PO 09/14/16 12:15 (Milk Of Magnesia Liq) 30 ml DAILY PRN PO 09/14/16 12:15 (Mag-Al Plus Susp Liq) 30 ml Q6H PRN PO 09/14/16 12:15 (Wellbutrin) 200 mg BID PO 09/14/16 21:00 09/16/16 08:30 (Valium) 5 mg BID PRN PO 09/14/16 15:45 09/16/16 08:34 (Hydrodiuril) 25 mg DAILY PO 09/15/16 09:00 09/16/16 08:30 (Pravachol) 80 mg HS PO 09/14/16 21:00 09/15/16 20:57 (Depakote Er) 2,500 mg HS PO 09/14/16 21:00 09/15/16 20:56 (Minipress) 2 mg Q12HR PO 09/15/16 21:00 09/16/16 08:30 Family History Father in his 60s secondary to, "heart problems" Mother in her 60s secondary to, "heart problems" Social History Denies tobacco use Denies alcohol use Reports occasional use of marijuana Physical Exam Vital Signs Vital Signs Date Time Temp Pulse Resp B/P Pulse Ox O2 Delivery O2 Flow Rate FiO2 09/16/16 06:20 97.7 96 18 140/81 96 09/15/16 20:03 97.3 58 18 141/76 97 Physical Exam GENERAL: This is a well-nourished, well-developed patient, in no apparent distress. SKIN: Multiple abrasions in the head. Warm and dry. HEAD: Atraumatic. Normocephalic. No temporal or scalp tenderness. EYES: Extraocular motions intact. No scleral icterus. No injection or drainage. CARDIOVASCULAR: Regular rate and rhythm without murmurs, gallops, or rubs. RESPIRATORY: Clear to auscultation. Breath sounds equal bilaterally. No wheezes , rales, or rhonchi. GASTROINTESTINAL: Abdomen soft, non-tender, nondistended. Bowel sounds active 4. MUSCULOSKELETAL: Extremities without clubbing, cyanosis, or edema. NEUROLOGICAL: Awake and alert. No focal deficits appreciated. Motor and sensory grossly within normal limits. Normal speech. Laboratory Laboratory Tests Test 09/16/16 08:50 Potassium Level 3.7 Result Diagram: 09/13/16 1803 09/16/16 0850 Assessment and Plan Assessment and Plan Patient is a 51-year-old male [facility] reports of feeling mentally unstable and feels like he is going to kill his . He is now admitted inpatient psychiatric unit. Unsalted for medical management. Bipolar affective, depression, anxiety - managed by psychiatry team, primary team. HTN - patient is not on any blood pressure medication at this time blood pressure is within acceptable range continue to monitor trend HLD - continue with home meds pravastatin -Lipid profile with elevated triglycerides add fish oil daily once he is discharged as we do not carry this in the hospital -Also recommend patient, straight on a healthy low-fat diet and increase exercise Polysubstance abuse - - Discuss risk substance use with patient. Counseled on abstaining. DVT prop patient ambulatory Recommend patient be started back on his home statin and recommend patient add fish oil [id number] once he is discharged. Nothing further further to add at this point will sign off Recommend patient follow up with PCP after discharge for further monitoring and medication adjustments Discussed plan of care with patient RN and Dr. Phan Discussed Condition With The exam, history, and the medical decision-making described in the above note were completed with the assistance of the mid-level provider. I reviewed and agree with the findings presented. I attest that I had a [id number] encounter with the patient on the same day, and personally performed and documented my assessment and findings in the medical record. Damaris Ramos Sep 16, 2016 16:03 Reid Phan MD Sep 25, 2016 14:14
--- NOTE | 2016-09-16 16:20 | HHI.PYPN ---
Subjective Remarks Patient was seen and case discussed with nursing. Patient continues to have an underlying aggression based on his body language and facial expressions. He is angry today concerning his new roommate and demands a different roommate. Patient continues to curse and has homicidal ideations towards his . His compliant with medications. Denies auditory or visual hallucinations. He has fleeting suicidal thoughts with no intent or plan. He denies any intent or plan for harming any staff or patients here. Medical note was reviewed and patient's elevated triglycerides recommended to be treated outpatient with statins. Potassium has normalized at 3.7. Patient is complaining of anxiety and for more Valium Objective Alert: Yes [place]: Person (O x 3) Mood: Other (Irritable, lessening) Affect: Blunted Memory Intact: Comment (Intact on clinical exam) Hallucinations: Other (Denies AVH) Delusions: No Delusion Type: Other (No delusions) Suicidal: Ideation (Denies SI) Homicidal: Ideation (Ruminative thoughts of violence and HI towards . No plan. No intent and seeking help to reduce this HI.) Insight/Judgement Poor Labs Test 09/16/16 08:50 Potassium Level 3.7 MEQ/L Vitals/IOs Vital Signs Date Time Temp Pulse Resp B/P Pulse Ox O2 Delivery O2 Flow Rate FiO2 09/16/16 06:20 97.7 96 18 140/81 96 09/14/16 06:17 Room Air Assessment & Plan Problem List: (1) Other psychoactive substance abuse with psychoactive substance-induced mood disorder ICD Code: F19.14 (2) Cocaine abuse ICD Code: F14.10 (3) Cannabis abuse ICD Code: F12.10 (4) Chronic post-traumatic stress disorder (PTSD) ICD Code: F43.12 Assessment & Plan Patient was told he would find a a new roommate. He was advised to let staff know if he develops any intent or plan of hurting anyone here. We will add when necessary Vistaril for anxiety Justification for Cont. Inpt. Patient will decompensate in a less restrictive setting Request HC Surrog/Guard Advoc?: No Richard Goldberg DO Sep 16, 2016 16:20
[2016-09-16 19:39] VITALS: BP 125/76; PULSE 81; RESP 18; TEMP 97.3; O2SAT 96
[2016-09-16] MEDS: DIVALPROEX SODIUM E.R. 500 MG TAB PO SCH (21:35)
[2016-09-16] MEDS: PRAVASTATIN SOD 40 MG TAB PO SCH (21:35)
[2016-09-17] MEDS: DIAZEPAM 5 MG TAB PO PRN ×2 (00:09→14:44)
[2016-09-17 05:49] VITALS: BP 130/81; PULSE 74; RESP 18; TEMP 97.2; O2SAT 95
[2016-09-17] MEDS: buPROPion HCL 100 MG TAB PO SCH ×2 (09:54→20:31)
[2016-09-17] MEDS: HYDROCHLOROTHIAZIDE 25 MG TAB PO SCH (09:54)
[2016-09-17] MEDS: PRAZOSIN HCL 2 MG CAP PO SCH ×2 (09:54→20:31)
--- NOTE | 2016-09-17 13:41 | HHI.PYPN ---
Subjective Remarks Patient was seen and case discussed with nursing. Patient is less irritable and threatening today. He is getting along with his roommate. His Vistaril is helping with anxiety. Chief complaint today is intermittent sleep. Continues to be blunted and especially vague concerning his homicidal ideation towards his . Describes it today as "iffy." Objective Alert: Yes [place]: Person (O x 3) Mood: Other (Irritable, lessening) Affect: Blunted Memory Intact: Comment (Intact on clinical exam) Hallucinations: Other (Denies AVH) Delusions: No Delusion Type: Other (No delusions) Suicidal: Ideation (Denies SI) Homicidal: Ideation (Ruminative thoughts of violence and HI towards . No plan. No intent and seeking help to reduce this HI.) Insight/Judgement Poor Vitals/IOs Vital Signs Date Time Temp Pulse Resp B/P Pulse Ox O2 Delivery O2 Flow Rate FiO2 09/17/16 05:49 97.2 74 18 130/81 95 09/14/16 06:17 Room Air Assessment & Plan Problem List: (1) Other psychoactive substance abuse with psychoactive substance-induced mood disorder ICD Code: F19.14 (2) Cocaine abuse ICD Code: F14.10 (3) Cannabis abuse ICD Code: F12.10 (4) Chronic post-traumatic stress disorder (PTSD) ICD Code: F43.12 Assessment & Plan Add trazodone 50 mg daily at bedtime for sleep Justification for Cont. Inpt. Patient will decompensate in a less restrictive setting Request HC Surrog/Guard Advoc?: No Richard Goldberg DO Sep 17, 2016 13:41
[2016-09-17 19:46] VITALS: BP 135/79; PULSE 111; RESP 18; TEMP 97.2; O2SAT 96
[2016-09-17] MEDS: PRAVASTATIN SOD 40 MG TAB PO SCH (20:31)
[2016-09-17] MEDS: DIVALPROEX SODIUM E.R. 500 MG TAB PO SCH (20:31)
[2016-09-17] MEDS ORDERED: traZODone HCL 50 MG TAB PO SCH (21:00)
[2016-09-18] MEDS: DIAZEPAM 5 MG TAB PO PRN ×2 (09:25→15:57)
[2016-09-18] MEDS: PRAZOSIN HCL 2 MG CAP PO SCH ×2 (09:26→20:48)
[2016-09-18] MEDS: HYDROCHLOROTHIAZIDE 25 MG TAB PO SCH (09:26)
[2016-09-18] MEDS: buPROPion HCL 100 MG TAB PO SCH ×2 (09:26→20:48)
--- NOTE | 2016-09-18 12:10 | HHI.PYPN ---
Subjective Remarks Patient seen and examined with counselor nurse. Chart reviewed. Case discussed with nursing staff reports patient is calmer. Sleep is reportedly poor but the patient is napping a lot. On my examination today the patient describes his mood is a little bit on the downside. He says that the prazosin is decreasing his nightmares but his sleep is indeed somewhat poor. I counseled the patient regarding good sleep hygiene including avoiding naps during the day. Irritability is decreasing which the patient attributes to his Depakote. He says that his urge to kill his is decreasing because of his sikh beliefs and also because he knows he would lose his [employer] benefits. The patient would like to discontinue his trazodone, which she did not find particularly helpful, and try Seroquel. I did discuss the risks and benefits of this medication with the patient in some detail and he persists and a desire to try this medication. Denies side effects from medications otherwise. Review of Systems Other No somatic complaints Objective Alert: Yes [place]: Person (once again oriented 3) Mood: Other (irritability continues to lessen) Affect: Blunted Memory Intact: Comment (intact) Hallucinations: Other (no audiovisual hallucinations) Delusions: No Delusion Type: Other (no delusional material) Suicidal: Ideation (no suicidal ideation) Homicidal: Ideation (decreasing ruminative homicidal ideation towards . No reported urge to hurt anyone on the inpatient psychiatric unit.) Insight/Judgement Fair Remarks No motoric abnormalities noted. Thought process linear. Speech within normal limits for rate, tone and volume. Labs Labs reviewed. No new labs. 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 Continue other psychotropics as ordered. Depakote level ordered for this evening. Continue to monitor on the inpatient unit. Continue other medications and care as ordered. Justification for Cont. Inpt. Impairments in safety. Medication changes in process. Risk for decompensation. Discharge Planning Pending psychiatric stabilization Request HC Surrog/Guard Advoc?: No Yogesh Starr MD Sep 18, 2016 12:10
[2016-09-18 18:02] VITALS: BP 128/65; PULSE 90; RESP 18; TEMP 98.1; O2SAT 94
[2016-09-18 20:08] VITALS: BP 136/79; PULSE 94; RESP 18; TEMP 98.7; O2SAT 95
[2016-09-18] MEDS: PRAVASTATIN SOD 40 MG TAB PO SCH (20:48)
[2016-09-18] MEDS ORDERED: QUEtiapine FUMARATE 25 MG TAB PO SCH (21:00)
[2016-09-19 05:33] VITALS: BP 126/63; PULSE 79; RESP 18; TEMP 97.2; O2SAT 95
[2016-09-19] MEDS: PRAZOSIN HCL 2 MG CAP PO SCH ×2 (08:52→20:30)
[2016-09-19] MEDS: buPROPion HCL 100 MG TAB PO SCH ×2 (08:52→21:00)
[2016-09-19] MEDS: HYDROCHLOROTHIAZIDE 25 MG TAB PO SCH (08:52)
[2016-09-19] MEDS: DIAZEPAM 5 MG TAB PO PRN ×2 (08:54→20:30)
--- NOTE | 2016-09-19 10:33 | HHI.PYPN ---
Subjective Remarks Patient seen and examined with counselor and occupational therapist and nurse in treatment team. Chart reviewed. Case discussed with nurse, occupational therapist and counselor. Per nursing staff, patient has been a behavioral problem. Per occupational therapist, patient is not participating in groups. Per counselor patient is denying homicidal ideation. Depakote was temporarily held overnight because the level came back elevated at 132. Repeat Depakote level this morning is 93. The patient reports that he would still like to try a higher dose and he had come in with initially, and we discussed splitting the difference a 2250 mg and rechecking a level in a few days. The patient does report that his anxiety level remains somewhat high at night. He did say that the Seroquel helped him sleep last night. He denies homicidal ideation and in particular denies homicidal ideation directed against his . He says "the worst thing I could do to her is walk away," because this would deprive her of his disability benefits. Review of Systems Other No somatic complaints today Objective Alert: Yes [place]: Person (oriented 3) Mood: Calm Affect: Blunted Memory Intact: Comment (remains intact) Hallucinations: Other (denies AVH) Delusions: No Delusion Type: Other (no delusions) Suicidal: Ideation (no suicidal ideation) Homicidal: Ideation (denies homicidal ideation, intent or plan) Insight/Judgement Fair Remarks Thought process linear. No abnormal motor movements noted. No signs of Depakote toxicity noted. Speech within normal limits for rate, tone and volume. Labs Test 09/18/16 09/19/16 18:57 07:19 Ammonia 27 MCMOL/L Valproic Acid (Depakene) Level 132 MCG/ML 93 MCG/ML Labs reviewed. 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 Check a level later in the week. Titrate Seroquel per patient preference to 50 mg at night. Continue other medications and care as ordered. Justification for Cont. Inpt. Monitoring for impairments in safety, although the patient is denying homicidal ideation today. Medication changes in process. Complicating condition, namely the elevated Depakote level although there is no evidence of Depakote toxicity. Discharge Planning Pending psychiatric stabilization Request HC Surrog/Guard Advoc?: No Yogesh Starr MD Sep 19, 2016 10:33
[2016-09-19] MEDS: PRAVASTATIN SOD 40 MG TAB PO SCH (20:31)
[2016-09-19] MEDS: DIVALPROEX SODIUM E.R. 500 MG TAB PO SCH (20:31)
[2016-09-19] MEDS: DIVALPROEX SODIUM E.R. 250 MG TAB PO SCH (20:32)
[2016-09-19] MEDS ORDERED: DIVALPROEX SODIUM E.R. 500 MG TAB PO SCH (21:00)
[2016-09-19] MEDS ORDERED: QUEtiapine FUMARATE 25 MG TAB PO SCH (21:00)
[2016-09-20 06:12] VITALS: BP 136/84; PULSE 100; RESP 18; TEMP 97.6; O2SAT 95
[2016-09-20] MEDS: HYDROCHLOROTHIAZIDE 25 MG TAB PO SCH (09:39)
[2016-09-20] MEDS: buPROPion HCL 100 MG TAB PO SCH ×2 (09:39→21:11)
[2016-09-20] MEDS: PRAZOSIN HCL 2 MG CAP PO SCH ×2 (09:39→21:11)
[2016-09-20] MEDS: DIAZEPAM 5 MG TAB PO PRN ×2 (09:39→21:12)
--- NOTE | 2016-09-20 12:58 | HHI.PYPN ---
Subjective Remarks Patient seen and examined with counselor. Chart reviewed. Case discussed with nursing staff who reports patient is medication seeking for Valium. On my examination today, the patient complains of sleeping somewhat poorly overnight and requests that we titrate his Seroquel. He does continue to seek for benzodiazepines and I reinforce that we'll keep the dose where it's at. His presentation is fairly antisocial today. Says he came "this close" to fighting with his seriously mentally ill roommate but was able to stop himself. We reinforce that, unlike his roommate, he is in control of his behavior, and this sort of outburst would not be tolerated. I also suggest that if he finds the inpatient unit so unpleasant, we have observed him several days with no evidence of violence, and so he is welcome to leave if he wishes. He says that he wishes to remain on the unit. Denies side effects from medications. Review of Systems Other No somatic complaints today. Objective Alert: Yes [place]: Person (once again oriented 3) Mood: Calm Affect: Blunted Memory Intact: Comment (Intact on clinical exam) Hallucinations: Other (No AVH) Delusions: No Delusion Type: Other (No delusions) Suicidal: Ideation (Denies SI) Homicidal: Ideation (No HI against but see above.) Insight/Judgement Fair Remarks TP linear. Speech wnl for rate, tone, volume. Labs Labs reviewed. No new labs. Vitals/IOs Vital Signs Date Time Temp Pulse Resp B/P Pulse Ox O2 Delivery O2 Flow Rate FiO2 09/20/16 06:12 97.6 100 18 136/84 95 Assessment & Plan Problem List: (1) Adjustment reaction with antisocial behavior ICD Code: F43.29 (2) Cocaine abuse ICD Code: F14.10 (3) Cannabis abuse ICD Code: F12.10 (4) Chronic post-traumatic stress disorder (PTSD) ICD Code: F43.12 Assessment & Plan With the benefit of extended observation, patient is 'declaring' himself to be chiefly antisocial with comorbid substance use issues. There is no evidence that he is at risk for violence from a mental illness as defined under the [place] Act. Rather, his risk comes from the antisocial personality factors and the substance use. These chronic risk factors will remain, regardless of how long I keep him on the unit. He remains quite med seeking for benzos. I'll retain him on the unit to try to adjust medications in service of lessening irritability, after which he may leave. I will titrate his Seroquel this evening. Continue other medications and care as ordered. Nursing staff are aware of his antipathy for roommate, and if we can move him (or roommate) to a different room, we will do so. Justification for Cont. Inpt. Medication adjustments. Discharge Planning Anticipate discharge by the end of the week. Request HC Surrog/Guard Advoc?: No Yogesh Starr MD Sep 20, 2016 12:58
[2016-09-20 20:10] VITALS: BP 125/84; PULSE 101; RESP 18; TEMP 97.9; O2SAT 95
[2016-09-20] MEDS ORDERED: QUEtiapine FUMARATE 100 MG TAB PO SCH (21:00)
[2016-09-20] MEDS: DIVALPROEX SODIUM E.R. 250 MG TAB PO SCH (21:11)
[2016-09-20] MEDS: DIVALPROEX SODIUM E.R. 500 MG TAB PO SCH (21:12)
[2016-09-20] MEDS: PRAVASTATIN SOD 40 MG TAB PO SCH (21:12)
[2016-09-21 05:53] VITALS: BP 126/77; PULSE 86; RESP 18; TEMP 97.4; O2SAT 96
[2016-09-21] MEDS: buPROPion HCL 100 MG TAB PO SCH ×2 (08:20→20:04)
[2016-09-21] MEDS: PRAZOSIN HCL 2 MG CAP PO SCH ×2 (08:20→20:03)
[2016-09-21] MEDS: HYDROCHLOROTHIAZIDE 25 MG TAB PO SCH (08:20)
[2016-09-21] MEDS: DIAZEPAM 5 MG TAB PO PRN ×2 (08:22→20:03)
[2016-09-21] MEDS: ACETAMINOPHEN 325 MG TAB PO PRN (15:53)
--- NOTE | 2016-09-21 17:24 | HHI.PYPN ---
Subjective Remarks Patient seen and examined with counselor. Chart reviewed. Case discussed with nursing staff. On my examination today, patient reports that sleep is slowly improving with Seroquel. He'd like to titrate the dose. Anxiety remains an issue. Remains medication seeking for additional Valium but is easily redirected. No SI/HI. Seems less tense. No side effects from medications. Review of Systems Other No physical complaints today Objective Alert: Yes [place]: Person, Place (at least) Mood: Calm Affect: Blunted Memory Intact: Comment (remains intact) Hallucinations: Other (No AVH) Delusions: No Delusion Type: Other (no delusional material) Suicidal: Ideation (no SI voiced) Homicidal: Ideation (no HI voiced) Insight/Judgement Fair Remarks No abnormal motor movements noted. No ataxia. Steady gait and station. Labs Labs reviewed. No new labs. Vitals/IOs Vital Signs Date Time Temp Pulse Resp B/P Pulse Ox O2 Delivery O2 Flow Rate FiO2 09/21/16 05:53 97.4 86 18 126/77 96 Assessment & Plan Problem List: (1) Adjustment reaction with antisocial behavior ICD Code: F43.29 (2) Cocaine abuse ICD Code: F14.10 (3) Cannabis abuse ICD Code: F12.10 (4) Chronic post-traumatic stress disorder (PTSD) ICD Code: F43.12 Assessment & Plan Titrate Seroquel per patient preference. Continue other psychotropics as ordered. Depakote level ordered for this evening. Continue other medications and care as ordered. Justification for Cont. Inpt. Medication changes in process. Discharge Planning Anticipate that we will monitor the patient over the weekend, adjusting meds as appropriate, and discharge the beginning of next week. Request HC Surrog/Guard Advoc?: No Yogesh Starr MD Sep 21, 2016 17:24
[2016-09-21 19:24] VITALS: BP 140/86; PULSE 97; RESP 16; TEMP 98.3; O2SAT 100
[2016-09-21] MEDS: DIVALPROEX SODIUM E.R. 250 MG TAB PO SCH (20:03)
[2016-09-21] MEDS: DIVALPROEX SODIUM E.R. 500 MG TAB PO SCH (20:03)
[2016-09-21] MEDS: PRAVASTATIN SOD 40 MG TAB PO SCH (20:04)
[2016-09-21] MEDS ORDERED: QUEtiapine FUMARATE 100 MG TAB PO SCH (21:00)
[2016-09-22 06:01] VITALS: BP 122/69; PULSE 89; RESP 18; TEMP 97.3
[2016-09-22] MEDS: ACETAMINOPHEN 325 MG TAB PO PRN ×2 (06:41→18:23)
[2016-09-22] MEDS: buPROPion HCL 100 MG TAB PO SCH ×2 (09:00→20:16)
[2016-09-22] MEDS: HYDROCHLOROTHIAZIDE 25 MG TAB PO SCH (09:02)
[2016-09-22] MEDS: PRAZOSIN HCL 2 MG CAP PO SCH ×2 (09:02→20:15)
[2016-09-22] MEDS: DIAZEPAM 5 MG TAB PO PRN ×2 (09:03→20:16)
--- NOTE | 2016-09-22 10:08 | HHI.PYPN ---
Subjective Remarks Patient seen and examined with counselor. Chart reviewed. Case discussed with nursing staff. On my examination today, patient reports that he slept a little bit better. He denies any homicidal ideation and in particular denies any homicidal ideation against his saying "I don't give a shit about her." He says "I'm not as depressed" as at admission. Medication seeking for Valium. Denies side effects from medications. Agreeable to titration of Seroquel. Review of Systems Other No reported physical complaints today. No complaints of symptoms consistent with Depakote toxicity. Objective Alert: Yes [place]: Person (O x 3) Mood: Calm Affect: Blunted Memory Intact: Comment (intact) Hallucinations: Other (None) Delusions: No Delusion Type: Other (no delusions) Suicidal: Ideation (No SI) Homicidal: Ideation (No HI) Insight/Judgement Fair Remarks No abnormal motor movements noted. No tremor. No ataxia. Awake and alert. TP linear. Speech wnl for rate, tone, volume. Labs Test 09/21/16 20:11 Valproic Acid (Depakene) Level 121 MCG/ML Labs reviewed. VPA level noted. No encephalopathy. Vitals/IOs Vital Signs Date Time Temp Pulse Resp B/P Pulse Ox O2 Delivery O2 Flow Rate FiO2 09/22/16 06:01 97.3 89 18 122/69 09/21/16 19:24 100 Assessment & Plan Problem List: (1) Adjustment reaction with antisocial behavior ICD Code: F43.29 (2) Cocaine abuse ICD Code: F14.10 (3) Cannabis abuse ICD Code: F12.10 (4) Chronic post-traumatic stress disorder (PTSD) ICD Code: F43.12 Assessment & Plan Titrate Seroquel to 300mg qHS. Continue other medications and care as ordered. Justification for Cont. Inpt. Medication adjustments in process. Discharge Planning Anticipate discharge beginning of next week. Request HC Surrog/Guard Advoc?: No Yogesh Starr MD Sep 22, 2016 10:08
[2016-09-22 19:22] VITALS: BP 123/58; PULSE 74; RESP 19; TEMP 98.1
[2016-09-22] MEDS: PRAVASTATIN SOD 40 MG TAB PO SCH (20:16)
[2016-09-22] MEDS: QUEtiapine FUMARATE 300 MG TAB PO SCH (20:16)
[2016-09-22] MEDS: DIVALPROEX SODIUM E.R. 250 MG TAB PO SCH (21:04)
[2016-09-22] MEDS: DIVALPROEX SODIUM E.R. 500 MG TAB PO SCH (21:04)
[2016-09-23 06:19] VITALS: BP 132/77; PULSE 100; RESP 18; TEMP 98; O2SAT 98
[2016-09-23] MEDS: ACETAMINOPHEN 325 MG TAB PO PRN ×3 (07:27→17:50)
[2016-09-23] MEDS: HYDROCHLOROTHIAZIDE 25 MG TAB PO SCH (09:18)
[2016-09-23] MEDS: PRAZOSIN HCL 2 MG CAP PO SCH ×2 (09:19→20:16)
[2016-09-23] MEDS: buPROPion HCL 100 MG TAB PO SCH ×2 (12:11→20:16)
--- NOTE | 2016-09-23 12:56 | HHI.PYPN ---
Subjective Remarks Pt seen and discussed with staff. Pt has been compliant with medications and denies side effects. He reports mood is starting to improve and he feels less volatile. He denies SI/HI. He reports sleep is improving. He c/o of L sided groin pain,exacerbated by physical activity and relieved partially by pressing on area. Objective Alert: Yes [place]: Person (O x 3), Place, Date Mood: Calm Affect: Blunted Memory Intact: Comment (intact) Hallucinations: Other (None) Delusions: No Delusion Type: Other (no delusions) Suicidal: Ideation (No SI) Homicidal: Ideation (No HI) Insight/Judgement limited Vitals/IOs Vital Signs Date Time Temp Pulse Resp B/P Pulse Ox O2 Delivery O2 Flow Rate FiO2 09/23/16 06:19 98.0 100 18 132/77 98 Assessment & Plan Problem List: (1) Adjustment reaction with antisocial behavior ICD Code: F43.29 (2) Cocaine abuse ICD Code: F14.10 (3) Cannabis abuse ICD Code: F12.10 (4) Chronic post-traumatic stress disorder (PTSD) ICD Code: F43.12 Assessment & Plan Continue current tx plan. Will consult hospitalist to assess L sided inguinal pain. Estimated LOS: days Justification for Cont. Inpt. impairments in social functioning, medication adjustments in progress Request HC Surrog/Guard Advoc?: Lacy Eubanks MD Sep 23, 2016 12:56
--- NOTE | 2016-09-23 17:41 | HHI.PR ---
Subjective Remarks Reconsulted because of right groin pain. Patient states he aggravated his right groin playing basketball. He has right inguinal pain with movements with no incontinence, radiculopathy and numbness. No history of inguinal hernia. Discussed with RN Objective Vitals Vital Signs Date Time Temp Pulse Resp B/P Pulse Ox O2 Delivery O2 Flow Rate FiO2 09/23/16 06:19 98.0 100 18 132/77 98 09/22/16 19:22 98.1 74 19 123/58 Objective Remarks GENERAL: This is a well-nourished, well-developed patient, in no apparent distress. CARDIOVASCULAR: Regular rate and rhythm without murmurs, gallops, or rubs. RESPIRATORY: Clear to auscultation. Breath sounds equal bilaterally. No wheezes , rales, or rhonchi. GASTROINTESTINAL: Abdomen soft, non-tender, nondistended. Normal active bowel sounds MUSCULOSKELETAL: Extremities without clubbing, cyanosis, or edema. No hernia. Negative straight leg raising test. NEURO: Alert & Oriented x4 to person, place, time, situation. Moves all ext x4 Procedures none A/P Assessment and Plan Patient is a 51-year-old male [facility] [place] [facility] reports of feeling mentally unstable and feels like he is going to kill his . He is now admitted inpatient psychiatric unit. management. Bipolar affective, depression, anxiety - managed by psychiatry team, primary team. HTN - patient is not on any blood pressure medication at this time blood pressure is within acceptable range continue to monitor trend HLD - continue with home meds pravastatin -Lipid profile with elevated triglycerides add fish oil daily once he is discharged as we do not carry this in the hospital -Also recommend patient, straight on a healthy low-fat diet and increase exercise Polysubstance abuse - - Discuss risk substance use with patient. Counseled on abstaining. Right inguinal pain likely musculoskeletal. Abdominal CT in 08/25/16 was unremarkable. Obtain CBC and ESR. Start muscle relaxer. Unable to use NSAIDs secondary to chronic kidney disease. We will avoid narcotics. Heat pads. PT eval Chronic kidney disease stage III. Avoid nephrotoxins. Repeat BMP and magnesium in the morning DVT Prophylaxis patient ambulatory Jovanny Sheppard MD Sep 23, 2016 17:41
[2016-09-23 20:06] VITALS: BP 145/68; PULSE 84; RESP 18; TEMP 97.5; O2SAT 96
[2016-09-23] MEDS: DIVALPROEX SODIUM E.R. 250 MG TAB PO SCH (20:16)
[2016-09-23] MEDS: DIVALPROEX SODIUM E.R. 500 MG TAB PO SCH (20:16)
[2016-09-23] MEDS: PRAVASTATIN SOD 40 MG TAB PO SCH (20:16)
[2016-09-23] MEDS: QUEtiapine FUMARATE 300 MG TAB PO SCH (20:16)
[2016-09-23] MEDS: DIAZEPAM 5 MG TAB PO PRN (20:17)
[2016-09-23] MEDS: METHOCARBAMOL 500 MG TAB PO SCH ×2 (21:11→22:47)
[2016-09-24] MEDS: METHOCARBAMOL 500 MG TAB PO SCH ×3 (06:06→22:00)
[2016-09-24] MEDS: ACETAMINOPHEN 325 MG TAB PO PRN ×2 (06:19→15:00)
[2016-09-24 06:28] VITALS: BP 137/82; PULSE 97; RESP 18; TEMP 96.5; O2SAT 96
[2016-09-24 07:51] LABS: AUTOMATED NEUTROPHIL # 2.2 TH/MM3 (1.8-7.7); BASOPHIL # 0.1 TH/MM3 (0-0.2); BASOPHIL % 1.4 % (0.0-2.0); EOSINOPHIL # 0.2 TH/MM3 (0-0.4); EOSINOPHIL % 3.5 % (0.0-4.0); HEMATOCRIT 42.3 % (39.0-51.0); HEMO FLAGS DIFF FINAL; LYMPH % 36.9 % (9.0-44.0); LYMPHOCYTE # 1.7 TH/MM3 (1.0-4.8); MEAN CORPUSCULAR HEMOGLOBIN 28.8 PG (27.0-34.0); MEAN CORPUSCULAR HGB CONC 33.5 % (32.0-36.0); MONO % 9.4 % (0.0-8.0); NEUT % 48.8 % (16.0-70.0); PLATELET COUNT 201 TH/MM3 (150-450); RED BLOOD COUNT 4.91 MIL/MM3 (4.50-5.90); RED CELL DISTRIBUTION WIDTH 13.8 % (11.6-17.2); WHITE BLOOD COUNT 4.6 TH/MM3 (4.0-11.0)
[2016-09-24 08:21] LABS: POTASSIUM 4.5 MEQ/L (3.5-5.1); WESTERGREN SEDIMENTATION RATE 1 mm/hr (0-20)
[2016-09-24] MEDS: HYDROCHLOROTHIAZIDE 25 MG TAB PO SCH (08:24)
[2016-09-24] MEDS: buPROPion HCL 100 MG TAB PO SCH ×2 (08:24→21:00)
[2016-09-24] MEDS: PRAZOSIN HCL 2 MG CAP PO SCH ×2 (08:24→20:30)
[2016-09-24] MEDS: DIAZEPAM 5 MG TAB PO PRN ×2 (08:25→20:29)
--- NOTE | 2016-09-24 14:45 | HHI.PYPN ---
Subjective Remarks Pt seen and discussed with staff. Staff report pt has been engaging in splitting behaviors on unit. Pt is upset because no longer has private room. He states that his mood is "shitty" and states that he had better get his way or grievances will be filled. Pt admits that overall mood has improved and anxiety has decreased. No SI/HI Objective Alert: Yes [place]: Person (O x 3), Place, Date Mood: Angry Affect: Restricted Memory Intact: Comment (intact) Hallucinations: Other (None) Delusions: No Delusion Type: Other (no delusions) Suicidal: Ideation (No SI) Homicidal: Ideation (No HI) Insight/Judgement poor Labs Test 09/24/16 07:20 White Blood Count 4.6 TH/MM3 Red Blood Count 4.91 MIL/MM3 Hemoglobin 14.2 GM/DL Hematocrit 42.3 % Mean Corpuscular Volume 86.0 FL Mean Corpuscular Hemoglobin 28.8 PG Mean Corpuscular Hemoglobin 33.5 % Concent Red Cell Distribution Width 13.8 % Platelet Count 201 TH/MM3 Mean Platelet Volume 8.4 FL Neutrophils (%) (Auto) 48.8 % Lymphocytes (%) (Auto) 36.9 % Monocytes (%) (Auto) 9.4 % Eosinophils (%) (Auto) 3.5 % Basophils (%) (Auto) 1.4 % Neutrophils # (Auto) 2.2 TH/MM3 Lymphocytes # (Auto) 1.7 TH/MM3 Monocytes # (Auto) 0.4 TH/MM3 Eosinophils # (Auto) 0.2 TH/MM3 Basophils # (Auto) 0.1 TH/MM3 CBC Comment DIFF FINAL Differential Comment Erythrocyte Sedimentation Rate 1 mm/hr Sodium Level 140 MEQ/L Potassium Level 4.5 MEQ/L Chloride Level 100 MEQ/L Carbon Dioxide Level 31.0 MEQ/L Anion Gap 9 MEQ/L Blood Urea Nitrogen 15 MG/DL Creatinine 1.38 MG/DL Estimat Glomerular Filtration 54 ML/MIN Rate Random Glucose 85 MG/DL Calcium Level 9.0 MG/DL Magnesium Level 2.0 MG/DL Vitals/IOs Vital Signs Date Time Temp Pulse Resp B/P Pulse Ox O2 Delivery O2 Flow Rate FiO2 09/24/16 06:28 96.5 97 18 137/82 96 Assessment & Plan Problem List: (1) Adjustment reaction with antisocial behavior ICD Code: F43.29 (2) Cocaine abuse ICD Code: F14.10 (3) Cannabis abuse ICD Code: F12.10 (4) Chronic post-traumatic stress disorder (PTSD) ICD Code: F43.12 Assessment & Plan Continue current tx plan. Estimated LOS: days Justification for Cont. Inpt. impairments in social functioning Request HC Surrog/Guard Advoc?: Lacy Eubanks MD Sep 24, 2016 14:45
[2016-09-24 18:00] VITALS: BP 140/92; PULSE 85; RESP 18; TEMP 97.7; O2SAT 93
[2016-09-24] MEDS: DIVALPROEX SODIUM E.R. 250 MG TAB PO SCH (20:29)
[2016-09-24] MEDS: DIVALPROEX SODIUM E.R. 500 MG TAB PO SCH (20:29)
[2016-09-24] MEDS: PRAVASTATIN SOD 40 MG TAB PO SCH (20:30)
[2016-09-24] MEDS: QUEtiapine FUMARATE 300 MG TAB PO SCH (20:30)
[2016-09-25] MEDS: METHOCARBAMOL 500 MG TAB PO SCH ×3 (00:04→13:46)
[2016-09-25 06:25] VITALS: BP 140/86; PULSE 102; RESP 20; TEMP 98.4; O2SAT 96
[2016-09-25] MEDS: buPROPion HCL 100 MG TAB PO SCH (08:19)
[2016-09-25] MEDS: PRAZOSIN HCL 2 MG CAP PO SCH (08:19)
[2016-09-25] MEDS: HYDROCHLOROTHIAZIDE 25 MG TAB PO SCH (08:19)
[2016-09-25] MEDS: ACETAMINOPHEN 325 MG TAB PO PRN ×2 (08:23→13:46)
[2016-09-25] MEDS ORDERED: DIVA250ER PO (11:14)
[2016-09-25] MEDS ORDERED: PRAZ2CAP PO (11:14)
[2016-09-25] MEDS ORDERED: PRAZ2 PO (11:14)
[2016-09-25] MEDS ORDERED: QUET1TAB10 PO (11:14)
[2016-09-25] MEDS ORDERED: DEPA500T3 PO ×2 (11:14)
[2016-09-25] MEDS ORDERED: SERO300T PO (11:14)
--- NOTE | 2016-09-25 11:14 | HHI.DS ---
Psychiatry Discharge Summary Inpatient Psychiatric care?: Yes Advance Directive: No Reason Not Provided: NOT INTERESTED Mental Health AdvanceDirective: No Health Care Proxy: No Admission Admission Date Sep 14, 2016 at 12:13 Admission Diagnosis: (1) Drug-induced mood disorder ICD Code: F19.94 (2) Cocaine abuse ICD Code: F14.10 (3) Cannabis abuse ICD Code: F12.10 (4) Chronic post-traumatic stress disorder (PTSD) ICD Code: F43.12 Brief History Mr. Porter is a 51-year-old male with a reported history of post traumatic stress disorder from trauma, bipolar disorder and anxiety who presents in transfer from the [facility] under a Jackson act from a Dr. Marcial there alleging passive suicidal ideation and homicidal ideation directed against . Also appended to the chart is a progress note from Dr. Marcial as well as a medication list, and I have reviewed this. Patient was evaluated in the emergency department by the psychiatric nurse practitioner who determined the patient met criteria for psychiatric hospitalization. Reviewing the electronic medical record, I note patient's most recent psychiatric hospitalization here was under Dr. Laurent in July of last year. Patient seen and examined with counselor. Chart reviewed. Case discussed with nursing staff. On my examination today, the patient says that he probably should've stayed a few more days when he was hospitalized last time. He reports that his presentation now is largely the result of the same stressors that led him to come into the hospital last time. He says that his is quite manipulative and treats him poorly for 3 weeks out of every month. She is only nice to him the week before he gets his disability check. He says that on this occasion his he used his being late coming home by 1 hour as a pretense to throw all of his items on the curb. He says that he would like to kill his as a result. He does not articulate a specific plan at this time but had said he might buy a gun and shoot her to the nurse practitioner in the ED. He feels "wanting to hurt her makes perfect sense" but also recognizes that these feelings are abnormal. He describes a high level of generalized anxiety and is medication seeking for benzodiazepines. His mood is dysphoric. He reports disrupted sleep with associated nightmares. Some avoidance and hyperarousal. He denies any SI at this time. Antisocial personality traits are evident. The remainder of the psychiatric ROS is negative. Past psychiatric history: Patient reports prior diagnoses as noted above. He is presently following with [facility]rial [facility] the [facility]. He has done psychotherapy through the [facility] in the past but finds that the provider changed to frequently to allow for establishment of report. He says that his only previous psychiatric admission was here under Dr. Laurent. He denies any history of suicide attempts. Patient reports that he felt some interval improvement in his condition when his Depakote was titrated from 1500mg to 2000mg qHS. He reports he has never been on prazosin for nightmares. Tobacco Use In Past 30 Days: Smokeless Tobacco Alcohol Use: Monthly or Less Hospital Course Patient was admitted to a locked, inpatient psychiatric unit. Appropriate precautions were in place throughout patient's hospital stay. A general medical consultation was obtained. Patient was seen and examined daily on the unit by psychiatry and also visited by counselor. Medications were adjusted. Patient tolerated medications well without side effects. Patient had improvement in his presenting psychiatric symptomatology. There was no evidence of any suicidality or homicidality on the inpatient unit. Patient did display some antisocial personality traits, and in retrospect his overall personality style is fairly mixed cluster B. He also was medication seeking for benzodiazepines. Otherwise, he was no real behavioral problem on the inpatient unit. He has been eating well and sleep, with few exceptions, has been overall fair. He is attending to his basic needs. On the day of discharge : Patient seen and examined with counselor. Chart reviewed. Case discussed with nursing staff. On my examination today, the patient denies any suicidal or homicidal ideation. In particular no homicidal ideation against his . Mood is reportedly improved versus admission, and I can elicit no real depressive or hypomanic/manic symptoms at this time. Denies AVH and there is no evident paranoia, ideas of reference, feelings of thought insertion or withdrawal, grandiosity or other delusional material. He denies side effects from medications. He does complain of some right groin pain for which he was evaluated by the hospitalist interior design consultant over the weekend but otherwise has no somatic complains at this time. No signs of Depakote toxicity. Weighing the acute, chronic, and protective factors and based on the available evidence, I pattern room attendant to a reasonable degree of medical certainty that the patient is at low imminent risk of harm to self or others from a mental illness and his level of function is adequate for outpatient care. The patient has maximized the benefit from this inpatient psychiatric hospital stay will be discharged today in stable condition with psychiatric follow-up as arranged by counselor once he is medically cleared by the hospitalist interior design consultant. Patient is also to follow- up with primary care. I counseled the patient regarding warning signs for need to return to the psychiatric emergency room as part of a general safety plan. Given that today is Presidents' Day, I will prescribe the patient a 1 day supply of medications to go home with tonight, and he may get the remainder of the prescription from the [facility] tomorrow. Results Blood Pressure 140 / 86 Vital Signs Date Time Temp Pulse Resp B/P Pulse Ox O2 Delivery O2 Flow Rate FiO2 09/25/16 06:25 98.4 102 20 140/86 96 Laboratory Tests Test 09/24/16 07:20 Monocytes (%) (Auto) 9.4 % (0.0-8.0) Creatinine 1.38 MG/DL (0.60-1.30) Estimat Glomerular Filtration 54 ML/MIN (>89) Rate Laboratory Results Test 09/21/16 20:11 Valproic Acid (Depakene) Level 121 MCG/ML (50-100) Summary of Procedures None done Imaging None done Pending results at discharge: No Medications # of Antipsychotic meds at D/C: 1 Approp Antipsych med options 1 - Minimum of three failed multiple trials of monotherapy. 2 - Documented plan to taper to monotherapy due to previous use of multiple meds OR cross-taper in progress at D/C. 3 - Documentation of augmentation of Clozapine. 4 - Justification other than those listed in allowable values 1-3, document here : Discharge Discharge Date: Sep 25, 2016 Discharge Diagnosis: (1) Other psychoactive substance dependence with psychoactive substance-induced mood disorder Diagnosis: Principal (mood disorder improved. 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 He is well groomed. He is awake and alert and oriented 3. No abnormal motor movements noted. No signs of withdrawal noted. Steady gait and station. Speech is within normal limits for rate, tone and volume. Language and fund of knowledge seem average. Mood is reportedly improved versus admission. Affect is blunted. Thought process linear. No loosening of associations. No evident delusions. Denies audiovisual hallucinations. Denies suicidal or homicidal ideation. Insight and judgment are fair. Pt Condition on Discharge: Stable Discharge Disposition: Discharge Home Discharge Instructions Diet Instructions: As Tolerated, No Restrictions Activities you can perform: Weight Bearing as Tricia Scheduled Appointment: as per counselor's notes New Medications: Divalproex ER (Depakote ER) 500 Mg Aristeo 2250 MG PO HS Mental Health Days 1 Ref 0 TAB Prazosin (Prazosin) 2 Mg Cap 2 MG PO BID Mental Health Days 1 Ref 0 CAP Quetiapine (Seroquel) 300 Mg Tab 300 MG PO HS Mental Health Days 1 Ref 0 TAB Divalproex ER (Depakote ER) 500 Mg Aristeo 2000 MG PO HS Mental Health Days 7 Ref 3 TAB Divalproex ER (Depakote ER) 250 Mg Aristeo 250 MG PO HS Mental Health Days 7 Ref 3 TAB Prazosin (Minipress) 2 Mg Cap 2 MG PO Q12HR Mental Health Days 7 Ref 3 CAP Quetiapine (Quetiapine) 300 Mg Tab 300 MG PO HS Mental Health Days 7 Ref 3 TAB Continued Medications: Bupropion HCl (Bupropion HCl) 100 Mg Tab 200 MG PO BID Control Depression Ref 0 TAB Diazepam (Diazepam) 5 Mg Tab 5 MG PO BID PRN ANXIETY Ref 0 TAB Hydrochlorothiazide (Hydrochlorothiazide) 25 Mg Tab 25 MG PO DAILY #30 Ref 0 TAB Simvastatin (Simvastatin) 40 Mg Tab 40 MG PO HS Cholesterol Management #30 Ref 0 TAB Discharge Time <= 30 minutes Discharge/Advance Care Plan Health Problems: (1) Adjustment reaction with antisocial behavior (2) Cocaine abuse (3) Cannabis abuse (4) Chronic post-traumatic stress disorder (PTSD) Goals to promote your health * To prevent worsening of your condition and complications * To maintain your health at the optimal level Directions to meet your goals Take your medications as prescribed Follow your dietary instruction Follow activity as directed Keep your appointments as scheduled Take your immunizations and boosters as scheduled If your symptoms worsen call your PCP, if no PCP go to Urgent Care Center or Emergency Room For 26/02 questions related to your inpatient stay or results of tests pending at discharge, please contact Dr. Yogesh Starr at Smoking is Dangerous to Your Health. Avoid second hand smoking Yogesh Starr MD Sep 25, 2016 11:14
== END 2016-09-25 14:55 | disposition home or self-care (01) | DRG 897 ==
LOC: NEDAMB 15:54 → NEDA 09-14 12:13 → H270 09-14 13:10
PROVIDERS: ADMIT Psychiatry & Neurology Psychiatry; ATTEND Psychiatry & Neurology Psychiatry
DX: F19.94 Other psychoactive substance use, unspecified with psychoactive substance-induced mood disorder (principal); F14.10 Cocaine abuse, uncomplicated; F12.10 Cannabis abuse, uncomplicated; I12.9 Hypertensive chronic kidney disease with stage 1 through stage 4 chronic kidney disease, or unspecified chronic kidney disease; N18.3 Chronic kidney disease, stage 3 (moderate); F60.89 Other specific personality disorders; F43.29 Adjustment disorder with other symptoms; F43.12 Post-traumatic stress disorder, chronic; E78.1 Pure hyperglyceridemia; R10.31 Right lower quadrant pain
CPT/HCPCS: 80048; 80053; 80061; 80164; 80307; 80320; 82140; 83036; 83735; 84132; 85025; 85652; 99284

== ENCOUNTER 2016-10-16 16:29 | Emergency (ER) | payer OTHER ==
[~2016-10-16] VITALS: Ht 172.7 cm; Wt 86.3 kg
[~2016-10-16 16:29] MED LIST changes: +DIVA250ER PO; +HYDR25TA5 PO; +PRAZ2 PO; +PRAZ2CAP PO; +QUET1TAB10 PO; +SERO300T PO
[2016-10-16 16:44] VITALS: BP 132/87; PULSE 87; RESP 16; TEMP 97.7; O2SAT 98
--- NOTE | 2016-10-16 17:03 | PD ---
HPI Chief Complaint: Psychiatric Symptoms Time Seen by Provider: 17:03 Travel History International Travel<30 days: No Contact w/Intl Traveler<30days: No Traveled to known affect area: No History of Present Illness HPI 51-year-old male with history of hypertension, CAD, chronic pain, PTSD, bipolar depression, anxiety, and polysubstance abuse, presents to emergency department under Jackson act for psychiatric evaluation. Patient states he has been having suicidal and homicidal thoughts. Does not wish to discuss the plan at this time. Denies any acute medical needs. Has no other symptoms to report. PFSH Past Medical History Arthritis: Yes Anxiety: Yes Depression: Yes Cancer: No Cardiovascular Problems: Yes High Cholesterol: Yes Diabetes: No Diminished Hearing: No Gastrointestinal Disorders: Yes (upper intestinal pain, intermittent and severe ) Genitourinary: Yes (kidney stones) Headaches: No Hypertension: Yes Kidney Stones: Yes (right kidney) Musculoskeletal: Yes (CHRONIC PAIN) Psychiatric: Yes (PTSD Bipolar Depression and Anxiety per pt) Reproductive: No Seizures: No Tetanus Vaccination: < 5 Years Past Surgical History Other Surgery: Yes Social History Alcohol Use: No Tobacco Use: No Substance Use: Yes Allergies-Medications (Allergen,Severity, Reaction): Coded Allergies: No Known Allergies (Unverified , 10/16/16) Reported Meds & Prescriptions Reported Meds & Active Scripts Active Prazosin (Prazosin HCl) 2 Mg Cap 2 Mg PO BID 1 Days Depakote ER (Divalproex Sodium) 500 Mg Aristeo 2,250 Mg PO HS 1 Days Seroquel (Quetiapine Fumarate) 300 Mg Tab 300 Mg PO HS 1 Days Quetiapine (Quetiapine Fumarate) 300 Mg Tab 300 Mg PO HS 7 Days Minipress (Prazosin HCl) 2 Mg Cap 2 Mg PO Q12HR 7 Days Depakote ER (Divalproex Sodium) 250 Mg Aristeo 250 Mg PO HS 7 Days Depakote ER (Divalproex Sodium) 500 Mg Aristeo 2,000 Mg PO HS 7 Days Reported Hydrochlorothiazide 25 Mg Tab 25 Mg PO DAILY Bupropion HCl 100 Mg Tab 200 Mg PO BID Simvastatin 40 Mg Tab 40 Mg PO HS Diazepam 5 Mg Tab 5 Mg PO BID PRN Review of Systems Except as stated in HPI: all other systems reviewed are Neg Physical Exam Narrative GENERAL: Well-nourished male patient, in no acute distress SKIN: Warm and dry. HEAD: Atraumatic. Normocephalic. EYES: Pupils equal and round. No scleral icterus. No injection or drainage. ENT: No nasal bleeding or discharge. Mucous membranes pink and moist. NECK: Trachea midline. No JVD. CARDIOVASCULAR: Regular rate and rhythm. No murmur appreciated. RESPIRATORY: No accessory muscle use. Clear to auscultation. Breath sounds equal bilaterally. GASTROINTESTINAL: Abdomen soft, non-tender, nondistended. Hepatic and splenic margins not palpable. MUSCULOSKELETAL: No obvious deformities. No clubbing. No cyanosis. No edema. NEUROLOGICAL: Awake and alert. No obvious cranial nerve deficits. Motor grossly within normal limits. Normal speech. Data Data Last Documented VS Vital Signs Date Time Temp Pulse Resp B/P Pulse Ox O2 Delivery O2 Flow Rate FiO2 10/16/16 22:30 84 17 125/67 97 Room Air 10/16/16 16:44 97.7 Orders Complete Blood Count With Diff (10/16/16 16:56) Basic Metabolic Panel (Bmp) (10/16/16 16:56) Psych Screen (10/16/16 16:56) Drug Screen, Random Urine (10/16/16 16:56) Alcohol (Ethanol) (10/16/16 16:56) Labs Laboratory Tests Test 10/16/16 10/16/16 17:00 21:45 White Blood Count 5.2 TH/MM3 Red Blood Count 5.06 MIL/MM3 Hemoglobin 14.8 GM/DL Hematocrit 43.8 % Mean Corpuscular Volume 86.7 FL Mean Corpuscular Hemoglobin 29.3 PG Mean Corpuscular Hemoglobin 33.8 % Concent Red Cell Distribution Width 15.0 % Platelet Count 177 TH/MM3 Mean Platelet Volume 7.5 FL Neutrophils (%) (Auto) 52.8 % Lymphocytes (%) (Auto) 27.9 % Monocytes (%) (Auto) 13.9 % Eosinophils (%) (Auto) 4.1 % Basophils (%) (Auto) 1.3 % Neutrophils # (Auto) 2.7 TH/MM3 Lymphocytes # (Auto) 1.5 TH/MM3 Monocytes # (Auto) 0.7 TH/MM3 Eosinophils # (Auto) 0.2 TH/MM3 Basophils # (Auto) 0.1 TH/MM3 CBC Comment DIFF FINAL Differential Comment Sodium Level 138 MEQ/L Potassium Level 3.8 MEQ/L Chloride Level 104 MEQ/L Carbon Dioxide Level 26.4 MEQ/L Anion Gap 8 MEQ/L Blood Urea Nitrogen 27 MG/DL Creatinine 1.64 MG/DL Estimat Glomerular Filtration 44 ML/MIN Rate Random Glucose 120 MG/DL Calcium Level 8.2 MG/DL Ethyl Alcohol Level LESS THAN 3 MG/DL Urine Opiates Screen NEG Urine Barbiturates Screen NEG Urine Amphetamines Screen NEG Urine Benzodiazepines Screen POS Urine Cocaine Screen POS Urine Cannabinoids Screen POS MDM Medical Decision Making Medical Screen Exam Complete: Yes Emergency Medical Condition: Yes Medical Record Reviewed: Yes Differential Diagnosis Mood disorder versus personality disorder versus adjustment reaction disorder versus polysubstance abuse Narrative Course 51-year-old male presents to emergency department for evaluation. Patient verbalizes suicidal and homicidal ideations without discussing a plan. CBC is without acute concern. BMP is with BUN 27, creatinine 1.64. Patient is tolerating by mouth fluids. Toxicologies positive for benzodiazepine, cocaine, cannabinoids. Patient is medically cleared to undergo psychiatric screening for further evaluation and disposition. Mental health screening discussed with the patient. Psychiatric screen ordered. Diagnosis Primary Impression: Drug-induced mood disorder Condition: Stable Beth Lan Oct 16, 2016 17:03
[2016-10-16 17:26] LABS: AUTOMATED NEUTROPHIL # 2.7 TH/MM3 (1.8-7.7); BASOPHIL # 0.1 TH/MM3 (0-0.2); BASOPHIL % 1.3 % (0.0-2.0); EOSINOPHIL # 0.2 TH/MM3 (0-0.4); EOSINOPHIL % 4.1 % (0.0-4.0); HEMATOCRIT 43.8 % (39.0-51.0); HEMO FLAGS DIFF FINAL; LYMPH % 27.9 % (9.0-44.0); LYMPHOCYTE # 1.5 TH/MM3 (1.0-4.8); MEAN CELL VOLUME 86.7 FL (80.0-100.0); MEAN CORPUSCULAR HEMOGLOBIN 29.3 PG (27.0-34.0); MEAN CORPUSCULAR HGB CONC 33.8 % (32.0-36.0); MONO % 13.9 % (0.0-8.0); NEUT % 52.8 % (16.0-70.0); PLATELET COUNT 177 TH/MM3 (150-450); RED BLOOD COUNT 5.06 MIL/MM3 (4.50-5.90); WHITE BLOOD COUNT 5.2 TH/MM3 (4.0-11.0)
[2016-10-16 17:40] LABS: ANION GAP 8 MEQ/L (5-15); BICARBONATE 26.4 MEQ/L (21.0-32.0); BLOOD UREA NITROGEN 27 MG/DL (7-18); CHLORIDE 104 MEQ/L (98-107); GLOMERULAR FILTRATION RATE 44 ML/MIN (>89); POTASSIUM 3.8 MEQ/L (3.5-5.1); SODIUM (NA) 138 MEQ/L (136-145)
[2016-10-16 22:30] VITALS: BP 125/67; PULSE 84; RESP 17; O2SAT 97
[2016-10-16 22:44] LABS: AMPHETAMINE, URINE NEG (NEG); BARBITURATES, URINE NEG (NEG); COCAINE, URINE POS (NEG)
[2016-10-17 02:06] VITALS: BP 128/68; PULSE 85; RESP 18; O2SAT 95
[2016-10-17 11:14] VITALS: BP 115/67; PULSE 81; RESP 16; O2SAT 95
--- NOTE | 2016-10-17 13:24 | MB ---
cc: YOGESH RIVERA MD DATE OF CONSULTATION: 10/17/2016 REQUESTING PHYSICIAN: Emergency department. REASON FOR CONSULTATION: Jackson Act HISTORY OF PRESENT ILLNESS Mr. Porter is a 51-year-old male with a history of PTSD and substance use issues who presents under a Jackson Act from Dr. Greenwood at the [facility] alleging that the patient has been having increasing relationship conflicts and presents to mental health clinic today stating that he cannot trust himself to not do something dangerous to himself or someone else. The patient is well-known to me from a recent psychiatric hospitalization here in September of this year. His toxicology on presentation here was positive for benzodiazepines, cocaine and cannabinoids. Electronic medical record reviewed. The patient seen and examined. Chart reviewed. Case discussed with nurse in the J pod. There is been no evidence of any suicidality or homicidality while in the J pod and the nurse in particular noted that although the patient was endorsing vague homicidal ideation, there was no evidence of any escalating tendency towards violence fact the patient appeared quite calm. Malingering is suspected. On my examination today, the patient says that he was feeling increasingly anxious because of bike week and also "numb nuts running around on spring." He says he went to his outpatient psychiatrist of his own volition to manage his anxiety and "Dr. Greenwood figured to put me and for a time out." He says that his anxiety level has decreased just during the period of observation in the J pod. He denies any suicidal or homicidal ideation at this time but still insinuates that he is not sure what he might do if he were to leave the hospital. He denies any audiovisual hallucinations, and I can elicit no delusional beliefs. He denies any significant mood issues. He says that his sleep is improved on the Seroquel that I adjusted for him last time. The remainder of the psychiatric ROS is negative. PAST PSYCHIATRIC HISTORY There has been no interval change from previous contact. The patient follows with Dr. Greenwood. He denies any interval psychiatric admissions or suicide attempts. FAMILY HISTORY No interval change from previous psychiatric admission. CHEMICAL DEPENDENCY: Chemical dependency history, The patient reports that he has been using cocaine but maintains that this is only sporadic. He provides no explanation for the benzodiazepines and cannabinoids in his urine. SOCIAL HISTORY No interval change from previous assessment except that the patient reports that he is no longer residing with his . It sounds like he is presently homeless and "bouncing around." PAST MEDICAL HISTORY See electronic medical record. REVIEW OF SYSTEMS No reported physical complaints this morning. PHYSICAL EXAMINATION Vital signs: T97.7F; P 81/min; R 16/min; BP 115/67; SpO2 95% RA. A physical examination was completed in the emergency room by the ER staff and the patient was medically cleared. On my examination today, the patient appears to be well-nourished and well-developed and in no acute physical distress. No motoric abnormalities noted. No signs of withdrawal noted. LABORATORY Reviewed. CBC negative. BMP significant for a decreased GFR at 44 and mildly increased glucose at 120. Toxicology positive for benzodiazepines, cocaine and cannabinoids. MENTAL STATUS EXAM The patient is in hospital gown. He is well-groomed. He is maintaining basic hygiene. He is awake and alert and oriented to person and hospital along with approximate date at least. No signs of delirium. No abnormal motor movements noted. The speech is within normal limits for rate, tone and volume. Language and fund of knowledge are average. Mood is fair and affect is blunted. The patient does complain of some anxiety but does not appear particularly anxious. Thought process linear. No loosening of associations. No evident delusions. Denies audiovisual hallucinations. Denies suicidal or homicidal ideation on direct questioning, but says that he is unsure when he might do if he were discharge from the psychiatric emergency room this morning. Insight and judgment are fair. ASSESSMENT/PLAN 1. Drug induced mood disorder. 2. Polysubstance abuse including cocaine, cannabinoids and benzodiazepines. 3. Antisocial personality traits This is a 51-year-old male with psychiatric history as detailed above who presents under a Jackson Act from his outpatient psychiatrist. As noted by the nursing staff, there is a significant mismatch between the patient's reported symptoms and his apparent affect. He is presently by his own report currently homeless. I do harbor some suspicion is that he has used all of his money to purchase cocaine and other drugs and is homeless and without the means to support himself and so has manufactured a circumstance to bring him to the psychiatric emergency room. He seems to be improving somewhat as the effects of his substances of abuse are wearing off, and I suspect that within 12 to 24 hours he may in fact be desirous of discharge. Given that he is still unsure of what he might do if he were discharged from psychiatric emergency room, I think it is prudent to retain him at this time under the Jackson Act and arrange for his transfer to [facility] once a bed becomes available. If the patient should desire to leave the emergency room later, I suspect that all of his risk for harm to self or others stems from his substance use and underlying antisocial personality traits and not from an [place] Mental illness, and so I would be in support of lifting the Jackson Act if he were desirous to go with outpatient psychiatric follow up. The patient is to be retained in the [facility] pod under the Jackson Act at this time until he can be transferred to [facility]. Thank you very much for this consultation. Yogesh Rascon /8:03 AM /11:19 AM MELVA
== END 2016-10-17 15:37 | disposition home or self-care (01) ==
LOC: NEPJ 16:29
DX: F19.94 Other psychoactive substance use, unspecified with psychoactive substance-induced mood disorder (principal); F19.10 Other psychoactive substance abuse, uncomplicated; I10 Essential (primary) hypertension; I25.10 Atherosclerotic heart disease of native coronary artery without angina pectoris; G89.29 Other chronic pain; E78.00 Pure hypercholesterolemia, unspecified; Z87.442 Personal history of urinary calculi
CPT/HCPCS: 80048; 80307; 85025; 99284